=== PATIENT | male | born 1955 | race Caucasian/White ===

== ENCOUNTER 2018-12-20 14:02 | Inpatient (IN) | payer OTHER ==
--- NOTE | 2018-12-20 15:16 | ER Document Report ---
ED Medical Screen (RME) - General Chief Complaint: Pedal Edema Stated Complaint: LEFT LEG SWOLLEN Time Seen by Provider: 12/20/18 15:06 Notes: Patient is a 63-year-old male with a history of type 2 diabetes and hypertension who presents to the emergency department with a chief complaint of left lower leg wound. Patient states that he has been seeing the wound clinic up in [place] for about 1 year after developing an ulcer to his left lower extremity. Patient states they have been unable to get the wound to heal appropriately. Patient states he has been using gentamicin ointment to the ulcer. Patient reports he has had increased redness and swelling to his lower extremity and now the redness has started to streak up the left upper leg and left inner thigh x 1 week. Patient reports he is unsure if the ulcer is getting worse because he is not able to see that part of his leg. Patient reports his blood sugars have been running in the lower 200s. - Related Data Allergies/Adverse Reactions: No Known Allergies Allergy (Verified 12/20/18 14:07) Physical Exam - Vital signs Vitals: Temp Pulse Resp BP Pulse Ox 99.0 F 94 20 184/89 H 93 12/20/18 14:09 12/20/18 14:09 12/20/18 14:12/20/18 14:09 12/20/18 14:09 - Extremities Notes: Significant edema, erythema and weeping to the bilateral lower extremities -left worse than right. Patient has a ulcer noted to the anterior aspect of the left lower leg. Course - Re-evaluation Re-evalutation: 12/20/18 15:16 I have greeted and performed a rapid initial assessment of this patient. A comprehensive ED assessment and evaluation of the patient, analysis of test results and completion of the medical decision making process will be conducted by additional ED providers. - Vital Signs Vital signs: Temp Pulse Resp BP Pulse Ox 99.0 F 94 20 184/89 H 93 12/20/18 14:09 12/20/18 14:12/20/18 14:12/20/18 14:09 12/20/18 14:09
[2018-12-20 15:52] LABS: ABSOLUTE BASOPHILS # (AUTO) 0.1 10^3/uL (0.0-0.2); ABSOLUTE EOSINOPHILS # (AUTO) 0.4 10^3/uL (0.0-0.6); ABSOLUTE LYMPHOCYTES (AUTO) 1.4 10^3/uL (0.5-4.7); ABSOLUTE MONOCYTES (AUTO) 0.9 10^3/uL (0.1-1.4); ABSOLUTE NEUT (AUTO) 6.9 10^3/uL (1.7-8.2); BASOPHILS % (AUTO) 0.8 % (0-2); HEMATOCRIT 34.6 % (37.9-51.0); HEMOGLOBIN 11.7 g/dL (13.5-17.0); LYMPHOCYTES % (AUTO) 14.4 % (13-45); MEAN CORPUSCULAR HGB CONC 33.8 g/dL (32.0-36.0); MEAN CORPUSCULAR VOLUME 83 fl (80-97); MONOCYTES % (AUTO) 9.4 % (3-13); PLATELET COUNT 414 10^3/uL (150-450); RED BLOOD COUNT 4.18 10^6/uL (4.35-5.55); RED CELL DISTRIBUTION WIDTH 17.8 % (11.5-14.0); SEGMENTED NEUTROPHILS % (AUTO) 71.4 % (42-78); TOTAL CELLS COUNTED % (AUTO) 100 %; WHITE BLOOD COUNT 9.7 10^3/uL (4.0-10.5)
[2018-12-20 16:09] LABS: ALBUMIN 3.7 g/dL (3.5-5.0); ALKALINE PHOSPHATASE 303 U/L (38-126); ANION GAP 11 (5-19); ASPARTATE AMINO TRANSFERASE 22 U/L (17-59); BILIRUBIN,DIRECT 0.4 mg/dL (0.0-0.4); BILIRUBIN,TOTAL 0.6 mg/dL (0.2-1.3); BLOOD UREA NITROGEN 16 mg/dL (7-20); CALCIUM 8.9 mg/dL (8.4-10.2); CARBON DIOXIDE 31 mmol/L (22-30); CHLORIDE 94 mmol/L (98-107); GLUCOSE 257 mg/dL (75-110); POTASSIUM 4.7 mmol/L (3.6-5.0); TOTAL PROTEIN 7.3 g/dL (6.3-8.2)
--- NOTE | 2018-12-20 16:37 | RADIOLOGY REPORT (SQ) ---
EXAM DESCRIPTION: TIBIA FIBULA LEFT COMPLETED DATE/TIME: 12/20/2018 4:17 pm REASON FOR STUDY: wound left anterior leg, + swelling, + erythema COMPARISON: None. NUMBER OF VIEWS: Two views. TECHNIQUE: Two radiographic images acquired of the left tibia and fibula to include the knee and ank le in at least one projection. LIMITATIONS: None. FINDINGS: MINERALIZATION: Normal. BONES: No acute fracture or dislocation. No worrisome bone lesions. SOFT TISSUES: Diffuse soft tissue swelling. Vascular calcifications. OTHER: No other significant finding. IMPRESSION: Diffuse soft tissue swelling. No acute osseous findings. TECHNICAL DOCUMENTATION: JOB ID: [id number] [place]-72 2010 [employer]- All Rights Reserved Reading location - IP/workstation name: [email or web address]
[2018-12-20] MEDS ORDERED: PIPERACILLIN/TAZOBACTAM 3.375 GM VIAL IV ONE (18:29)
[2018-12-20] MEDS ORDERED: NORMAL SALINE 1000 ML 1,000 ML IV ONE (18:29)
[2018-12-20] MEDS ORDERED: VANCOMYCIN HCL INJ 1000 MG VIAL IV ONE (18:29)
--- NOTE | 2018-12-20 18:39 | ER Document Report ---
ED Extremity Problem, Lower - General Chief Complaint: Pedal Edema Stated Complaint: LEFT LEG SWOLLEN Time Seen by Provider: 12/20/18 15:06 Mode of Arrival: Ambulatory Information source: Patient Notes: 63-year-old male presented to ED for complaint of increasing swelling pain and drainage from his left lower leg. He has a history of diabetes type 2 and blood pressure. He states he has a distant history of arthroscopic surgeries to both knees inguinal hernia tonsils and adenoids wisdom teeth removal. He states he takes metformin and insulin for his diabetes. He states his sugars have been running in the 200s. 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 He states he has been being seen at a clinic in [place] for about a year for developing ulcer and swelling lymphedema to the left lower leg. He states his wound has been getting much worse over the last week with increasing redness swelling and drainage. He states he has developed streaking up his thigh in the last week also. He states he thinks his wound is getting worse and he is not able to see that part of his leg due to the swelling in his upper leg and behind his knee. - HPI Patient complains to provider of: Pain, Swelling, Other - Ulcer to the lower leg Location: Leg, Thigh Occurred: Other - Chronic history of mild lymphedema and a ulcer to the lower leg much worse over the last week now developed bright red with red streaking up his thighs. He states the swelling pain and drainage have been much worse progressing over the last week Quality of pain: Sharp, Throbbing Severity: Severe Pain Level: 5 Recent injury: No Associated symptoms: Painful ambulation Exacerbated by: Hanging down, Movement, Walking Relieved by: Nothing - Related Data Allergies/Adverse Reactions: No Known Allergies Allergy (Verified 12/20/18 14:07) Past Medical History - General Information source: Patient - Patient RN he is to - Social History Smoking Status: Never Smoker Frequency of alcohol use: Heavy - 2 beer a day for the pain Drug Abuse: None Occupation: RN working in the PACU Lives with: Alone Family History: Reviewed & Not Pertinent Patient has suicidal ideation: No Patient has homicidal ideation: No - Past Medical History Cardiac Medical History: Reports: Hx Hypercholesterolemia, Hx Hypertension Pulmonary Medical History: Reports: None EENT Medical History: Reports: None Neurological Medical History: Reports: None Endocrine Medical History: Reports: Hx Diabetes Mellitus Type 2 Renal/ Medical History: Reports: None Malignancy Medical History: Reports None GI Medical History: Reports: None Musculoskeletal Medical History: Reports Hx Musculoskeletal Deformity, Reports Hx Musculoskeletal Trauma Skin Medical History: Reports None Psychiatric Medical History: Reports: None Traumatic Medical History: Reports: None Infectious Medical History: Reports: None Past Surgical History: Reports: Hx Inguinal Hernia, Hx Oral Surgery, Hx Orthopedic Surgery - karla knee, Hx Tonsillectomy Review of Systems - Review of Systems Constitutional: No symptoms reported EENT: No symptoms reported Cardiovascular: No symptoms reported Respiratory: No symptoms reported Gastrointestinal: No symptoms reported Genitourinary: No symptoms reported Male Genitourinary: No symptoms reported Musculoskeletal: No symptoms reported, Muscle pain Skin: Change in color - Left lower leg very erythematous swollen weeping with left thigh having erythematous streaking large draining ulcer to the left lateral lower leg draining purulent drainage, Lesions Hematologic/Lymphatic: No symptoms reported Neurological/Psychological: No symptoms reported -: Yes All other systems reviewed and negative Physical Exam - Vital signs Vitals: Temp Pulse Resp BP Pulse Ox 99.0 F 94 20 184/89 H 93 12/20/18 14:12/20/18 14:12/20/18 14:12/20/18 14:12/20/18 14:09 Interpretation: Normal - General General appearance: Appears well, Alert - HEENT Head: Normocephalic, Atraumatic Eyes: Normal Pupils: PERRL - Respiratory Respiratory status: No respiratory distress Chest status: Nontender Breath sounds: Normal Chest palpation: Normal - Cardiovascular Rhythm: Regular Heart sounds: Normal auscultation Murmur: No - Abdominal Inspection: Normal Distension: No distension Bowel sounds: Normal Tenderness: Nontender Organomegaly: No organomegaly - Back Back: Normal, Nontender - Extremities General upper extremity: Normal inspection, Nontender, Normal color, Normal ROM, Normal temperature General lower extremity: Normal ROM, Normal temperature. No: Lakeshia's sign Thigh: Other - Very large edematous left thigh with red streaking from the lower leg. Patient also has lymphedema to the right leg but not as bad as the left leg. Pedal pulses marked on both feet Calf: Tender, Other - Left lower leg very erythematous swollen weeping with left thigh having erythematous streaking large draining ulcer to the left lateral lower leg draining purulent drainage - Neurological Neuro grossly intact: Yes Cognition: Normal Orientation: AAOx4 [place] Coma Scale Eye Opening: Spontaneous [place] Coma Scale Verbal: Oriented [place] Coma Scale Motor: Obeys Commands [place] Coma Scale Total: 15 Speech: Normal Motor strength normal: LUE, RUE, LLE, RLE Sensory: Normal - Psychological Associated symptoms: Normal affect, Normal mood - Skin Skin Temperature: Warm Skin Moisture: Dry Skin Color: Normal Location of irregularity: Extremities - Left lower leg with streaking up left thigh Character of irregularity: Erythematous - Left lower legs with red streaking up the left thigh Irregularity with: Swelling, Tenderness, Lymphangitis, Thickening, Inflammation, Weeping Course - Vital Signs Vital signs: Temp Pulse Resp BP Pulse Ox 98.1 F 80 18 183/72 H 95 12/20/18 21:52 12/20/18 21:52 12/20/18 21:52 12/20/18 21:52 12/20/18 21:52 - Laboratory Result Diagrams: 12/20/18 15:24 12/20/18 15:24 Laboratory results interpreted by me: 12/20/18 12/20/18 12/20/18 15:24 15:24 15:24 RBC 4.18 L Hgb 11.7 L Hct 34.6 L RDW 17.8 H Sodium 135.9 L Chloride 94 L Carbon Dioxide 31 H Glucose 257 H Hemoglobin A1c % 7.2 H Alkaline Phosphatase 303 H - Consults sanam Time consulted: 18:21 Reason for consultation: 12/20/18 18:45 Infected wound to the left lower leg streaking up the left thigh gross edema to the whole leg Consulted provider: will come to ER Ade Time consulted: 18:30 Reason for consultation: 12/20/18 18:47 Dr. Díaz patient stated patient will need to be admitted to hospitalist and he will consult. I consulted the hospitalist Dr. Guillen who stated she would pass it to the retail shift supervisor hospitalist for admission. Consulted provider: other - Dr. Booker and stated she would pass it onto the nighttime hospitalist for admission Discharge - Discharge Clinical Impression: Lymphangitis, acute, lower leg Ulcer of leg, chronic, left Qualifiers: Non-pressure ulcer stage: unspecified non-pressure ulcer stage Qualified Code(s): L97.929 - Non-pressure chronic ulcer of unspecified part of left lower leg with unspecified severity Cellulitis Qualifiers: Site of cellulitis: extremity Site of cellulitis of extremity: lower extremity Laterality: left Qualified Code(s): L03.116 - Cellulitis of left lower limb Obesity Qualifiers: Obesity type: unspecified obesity type Obesity classification: adult class 3 (BMI >= 40) Serious obesity comorbidity presence: with serious comorbidity Body mass index: BMI 45.0-49.9 Qualified Code(s): E66.01 - Morbid (severe) obesity due to excess calories Disposition: ADMITTED INPATIENT Admitting Provider: Roman (Hospitalist) Unit Admitted: Medical Floor
[2018-12-20] MEDS ORDERED: MORPHINE SULFATE 10 MG/ML INJ IV ONE (18:42)
[2018-12-20] MEDS ORDERED: ONDANSETRON HCL INJ/PF 4 MG/2 ML SDV IV ONE (18:42)
[2018-12-20 18:51] LABS: APPEARANCE,URINE CLEAR; BILIRUBIN,URINE NEGATIVE (NEGATIVE); COLOR,URINE YELLOW; GLUCOSE, URINE NEGATIVE (NEGATIVE); KETONES,URINE NEGATIVE (NEGATIVE); LEUKOCYTE ESTERASE,URINE NEGATIVE (NEGATIVE); NITRITE,URINE NEGATIVE (NEGATIVE); PROTEIN,URINE NEGATIVE (NEGATIVE); URINE SPECIFIC GRAVITY 1.006; UROBILINOGEN,URINE NEGATIVE mg/dL (<2.0)
[2018-12-20] MEDS ORDERED: OXYCODONE-ACETAMINOPHEN 5-325 MG TABLET PO ONE (19:04)
[2018-12-20] MEDS ORDERED: DEXTROSE 40% GEL 15 GM TUBE PO PRN ×2 (19:05)
[2018-12-20] MEDS ORDERED: MAG HYDROX/AL HYDROX/SIMETH SUSP 30 ML UDCUP PO PRN (19:05)
[2018-12-20] MEDS ORDERED: GLUCAGON,HUMAN RECOMB 1 MG INJ IM PRN (19:05)
[2018-12-20] MEDS ORDERED: IPRATROPIUM/ALBUTEROL 0.5-2.5 MG/3 ML AMPUL NEB PRN (19:05)
[2018-12-20] MEDS ORDERED: ACETAMINOPHEN 325 MG TABLET PO PRN (19:05)
[2018-12-20] MEDS ORDERED: DEXTROSE 50%-WATER 25 GM/50 ML DISP.SYRIN IV PRN ×2 (19:05)
[2018-12-20] MEDS ORDERED: VANCOMYCIN HCL 0 MG in DEXTROSE 5%-WATER 250 ML IV NR (19:15)
--- NOTE | 2018-12-20 19:31 | PDOC CONSULTATION ---
Consultation Consult Date: 12/20/18 Attending physician:: tio Provider Consulted: JOSEPH VELASCO History of Present Illness Admission Date/PCP: 12/20/18 19:20 Patient complains of: Leg swelling, drainage History of Present Illness: RAMIN VEGA is a 63 year old male Presents emergency department via ground rescue complaining of a several week history of leg swelling left greater than right, weeping, drainage, foul smell, open ulcers left lower anterior tibial region. 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 The emergency department patient was found to have cellulitis, possible lymphangitis and admission was recommended. Patient receives his medical care in [place] and is interested in leaving the emergency department and driving to [place] for continued care. Surgery was consulted for evaluation Past Medical History Past Medical History: Obesity Cardiac Medical History: Reports: Hyperlipidema, Hypertension Pulmonary Medical History: Reports: None EENT Medical History: Reports: None Neurological Medical History: Reports: None Endocrine Medical History: Reports: Diabetes Mellitus Type 2 Renal/ Medical History: Reports: None Malignancy Medical History: Reports: None GI Medical History: Reports: None Skin Medical History: Reports: None Psychiatric Medical History: Reports: None Traumatic Medical History: Reports: None Infectious Medical History: Reports: None Past Surgical History Past Surgical History: Reports: Orthopedic Surgery - karla knee, Tonsillectomy Social History Lives with: Alone Smoking Status: Never Smoker Frequency of Alcohol Use: None Hx Recreational Drug Use: No Family History Family History: None, Reviewed & Not Pertinent Parental Family History Reviewed: Yes Children Family History Reviewed: Yes Sibling(s) Family History Reviewed.: Yes Medication/Allergy Allergies/Adverse Reactions: No Known Allergies Allergy (Verified 12/20/18 14:07) Review of Systems Constitutional: ABSENT: chills, fever(s), headache(s), weight gain, weight loss Eyes: ABSENT: visual disturbances Ears: ABSENT: hearing changes Gastrointestinal: ABSENT: abdominal pain, constipation, diarrhea, hematemesis, hematochezia, nausea, vomiting Genitourinary: ABSENT: dysuria, hematuria Integumentary: PRESENT: as per HPI Neurological: PRESENT: other - Chronic dysesthesia of the lower extremities Physical Exam Vital Signs: Temp Pulse Resp BP Pulse Ox 99.0 F 94 20 184/89 H 93 12/20/18 14:12/20/18 14:09 12/20/18 14:09 12/20/18 14:09 12/20/18 14:09 Intake & Output 12/19/18 12/20/18 12/21/18 06:59 06:59 06:59 Weight 171.4 kg General appearance: PRESENT: no acute distress Head exam: PRESENT: normocephalic Eye exam: PRESENT: EOMI Mouth exam: PRESENT: dry mucosa Neck exam: PRESENT: full ROM Respiratory exam: PRESENT: clear to auscultation karla Cardiovascular exam: PRESENT: RRR Pulses: PRESENT: normal carotid pulses, normal radial pulses, normal femoral pulses GI/Abdominal exam: PRESENT: soft Rectal exam: PRESENT: deferred Extremities exam: PRESENT: other - Lower extremities examined. Patient has advanced stage IV cellulitis, chronic lymphedema, actively weeping legs marked erythematous streaking above the knee into the thigh with +4 edema of the entire leg. There are open wounds x2 left mid to lower lateral leg with fibrinous debris. Doppler. The right leg has nodular edema but no active weeping. Neurological exam: PRESENT: oriented to person, oriented to place, oriented to time, oriented to situation Psychiatric exam: PRESENT: appropriate affect Results Laboratory Results: 12/20/18 15:24 12/20/18 15:24 12/20/18 12/20/18 12/20/18 15:24 15:24 15:24 WBC 9.7 RBC 4.18 L Hgb 11.7 L Hct 34.6 L MCV 83 MCH 28.0 MCHC 33.8 RDW 17.8 H Plt Count 414 Seg Neutrophils % 71.4 Sodium 135.9 L Potassium 4.7 Chloride 94 L Carbon Dioxide 31 H Anion Gap 11 BUN 16 Creatinine 0.86 Est GFR ( Amer) > 60 Glucose 257 H Lactic Acid 2.0 Calcium 8.9 Total Bilirubin 0.6 AST 22 Alkaline Phosphatase 303 H Total Protein 7.3 Albumin 3.7 Urine Color Urine Appearance Urine pH Ur Specific [place] Urine Protein Urine Glucose (UA) Urine Ketones Urine Blood Urine Nitrite Ur Leukocyte Esterase Urine WBC (Auto) Urine RBC (Auto) 12/20/18 18:30 WBC RBC Hgb Hct MCV MCH MCHC RDW Plt Count Seg Neutrophils % Sodium Potassium Chloride Carbon Dioxide Anion Gap BUN Creatinine Est GFR ( Amer) Glucose Lactic Acid Calcium Total Bilirubin AST Alkaline Phosphatase Total Protein Albumin Urine Color YELLOW Urine Appearance CLEAR Urine pH 6.0 Ur Specific [place] 1.006 Urine Protein NEGATIVE Urine Glucose (UA) NEGATIVE Urine Ketones NEGATIVE Urine Blood NEGATIVE Urine Nitrite NEGATIVE Ur Leukocyte Esterase NEGATIVE Urine WBC (Auto) 2 Urine RBC (Auto) 1 Impressions: Tibia/Fibula X-Ray 12/20/18 15:13 IMPRESSION: Diffuse soft tissue swelling. No acute osseous findings. Assessment & Plan - Diagnosis (1) Ulcer of leg, chronic, left Is this a current diagnosis for this admission?: Yes Plan: Impression: Acute superimposed on chronic venous insufficiency of lower extremities with acute cellulitis, and element of lymphangitis above the knee with streaking in diabetic male with history of suboptimal management of his chronic condition Recommendations: 1. At bedside I debrided the ulcers on the anterior lateral aspect of the lower leg. We will initiate enzymatic debridement of the ulcer bed 2. I agree that the patient should be admitted to the hospital service for leg elevation, leg wrapping, compression garment therapy, intravenous antibiotics. 3. Unfortunately patient is convinced he will leave the hospital emergency department after his single dose of intravenous antibiotics so he can travel to [facility] to receive care where his insurance will cover him. We have advised him to stay at [facility] reduce his risk of clinical deterioration, sepsis etc. (2) Obesity Is this a current diagnosis for this admission?: Yes (3) Diabetes mellitus Is this a current diagnosis for this admission?: Yes (4) Cellulitis Is this a current diagnosis for this admission?: Yes (5) Chronic acquired lymphedema Is this a current diagnosis for this admission?: Yes (6) Lymphangitis, acute, lower leg Is this a current diagnosis for this admission?: Yes - Time Time Spent: 30 to 50 Minutes Smoking Cessation Education: 3 to 10 minutes Medications reviewed and adjusted accordingly: Yes Anticipated discharge: Home - Inpatient Certification Based on my medical assessment, after consideration of the patient's comorbidities, presenting symptoms, or acuity I expect that the services needed warrant INPATIENT care.: Yes I certify that my determination is in accordance with my understanding of Medicare's requirements for reasonable and necessary INPATIENT services [42 CFR 412.3e].: Yes Medical Necessity: Need for IV Antibiotics, Need for Surgery
--- NOTE | 2018-12-20 19:42 | EKG REPORT ---
SEVERITY:- ABNORMAL ECG - ATRIAL FIBRILLATION, V-RATE 70-90 RBBB AND LPFB : Confirmed by: Keshia Fernandez MD 20-Dec-2018 19:41:33
[2018-12-20] MEDS ORDERED: COLLAGENASE CLOSTRIDIUM HIST. OINT 30 GM ONE (19:47)
--- NOTE | 2018-12-20 19:52 | RADIOLOGY REPORT (SQ) ---
EXAM DESCRIPTION: CHEST 2 VIEWS COMPLETED DATE/TIME: 12/20/2018 7:41 pm REASON FOR STUDY: pedal edema COMPARISON: None. TECHNIQUE: Frontal and lateral radiographic views of the chest acquired. NUMBER OF VIEWS: Two view. LIMITATIONS: None. FINDINGS: LUNGS AND PLEURA: No pneumothorax. No consolidation or pleural effusion. MEDIASTINUM AND HILAR STRUCTURES: Age-appropriate contour. HEART AND VASCULAR STRUCTURES: Normal size. BONES: No acute findings. HARDWARE: None in the chest. OTHER: No other significant finding. IMPRESSION: NO ACUTE FINDINGS. TECHNICAL DOCUMENTATION: JOB ID: [id number] [place]-[id number] 2010 [employer]- All Rights Reserved Reading location - IP/workstation name: [email or web address]
[2018-12-20] MEDS ORDERED: FUROSEMIDE 40 MG TABLET PO ONE (20:00)
[2018-12-20] MEDS ORDERED: INSULIN LISPRO 100 UNIT/ML 3 ML VIAL SUBCUT ONE (20:15)
[2018-12-20] MEDS: COLLAGENASE CLOSTRIDIUM HIST. OINT 30 GM TP SCH (20:15)
[2018-12-20] MEDS ORDERED: PIPERACILLIN/TAZOBACTAM 4.5 GM VIAL IV PRN (20:19)
[2018-12-20] MEDS ORDERED: VANCOMYCIN HCL INJ 1000 MG VIAL IV PRN (20:20)
[2018-12-20] MEDS ORDERED: VANCOMYCIN HCL 1,500 MG in DEXTROSE 5%-WATER 250 ML IV ONE (20:30)
[2018-12-20] MEDS: HYDROCODONE/ACETAMINOPHEN 5-325 MG TABLET PO PRN (21:45)
[2018-12-20] MEDS ORDERED: ENALAPRIL MALEATE 10 MG TABLET PO SCH (22:00)
[2018-12-20] MEDS: HEPARIN SOD (PORCINE) 5,000 UNIT/ML 1 ML VIAL SUBCUT SCH (22:26)
[2018-12-20] MEDS ORDERED: INSULIN GLARGINE,HUM.REC.ANLOG 1,000 UNIT/10 ML VIAL (PYX) SUBCUT ONE (23:02)
[2018-12-20] MEDS: KETOROLAC TROMETHAMINE INJ/PF 30 MG/1 ML SDV IV PRN (23:10)
[2018-12-20] MEDS: INSULIN GLARGINE,HUM.REC.ANLOG 1,000 UNIT/10 ML VIAL SUBCUT SCH (23:10)
[2018-12-21] MEDS ORDERED: HYDROCODONE/ACETAMINOPHEN 5-325 MG TABLET PO ONE ×2 (00:15)
[2018-12-21] MEDS ORDERED: PIPERACILLIN/TAZOBACTAM 4.5 GM VIAL IV ONE (00:27)
[2018-12-21] MEDS: PIPERACILLIN SODIUM/TAZOBACTAM 4.5 GM in NORMAL SALINE 100 ML IV SCH ×5 (00:48→23:33)
[2018-12-21] MEDS: HYDROCODONE/ACETAMINOPHEN 5-325 MG TABLET PO PRN ×4 (03:08→23:33)
--- NOTE | 2018-12-21 05:40 | PDOC H&P ---
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 He presents with 5 days of increasing swelling pain erythema quickly spreading from below to above the knee to the upper thigh associated with subjective fever and pain. He is found to have leukocytosis, uncontrolled hypertension, leukocytosis with cellulitis of the entire left lower extremity and a 3 x 4 cm irregular ulcer with purulent base. Patient admits multiple rounds of oral and topical antibiotics most recently completing Augmentin 2 months ago and topical clindamycin approximately 2 weeks ago. He denies shortness of breath chest pain or cough. Multiple evaluations for deep vein thrombosis are negative. Past Medical History Cardiac Medical History: Reports: Hyperlipidema, Hypertension Pulmonary Medical History: Reports: None EENT Medical History: Reports: None Neurological Medical History: Reports: None Endocrine Medical History: Reports: Diabetes Mellitus Type 2 Renal/ Medical History: Reports: None Malignancy Medical History: Reports: None GI Medical History: Reports: None Skin Medical History: Reports: None Psychiatric Medical History: Reports: None Traumatic Medical History: Reports: None Infectious Medical History: Reports: None Past Surgical History Past Surgical History: Reports: Orthopedic Surgery - karla knee, Tonsillectomy Social History Information Source: Patient Lives with: Alone Smoking Status: Never Smoker Frequency of Alcohol Use: Occasional Hx Recreational Drug Use: No Drugs: None - Advance Directive Resuscitation Status: Full Code Family History Family History: DM, Other - Peripheral vascular disease Parental Family History Reviewed: Yes Children Family History Reviewed: Yes Sibling(s) Family History Reviewed.: Yes Medication/Allergy Home Medications: Amlodipine Besylate [Norvasc 10 mg Tablet] 10 mg PO DAILY 12/21/18 Candesartan Cilexetil [Atacand 32 mg Tablet] 32 mg PO DAILY 12/21/18 Enalapril Maleate [Vasotec 20 mg Tablet] 20 mg PO DAILY 12/21/18 Glimepiride [Amaryl 4 mg Tablet] 4 mg PO ACSUPPER 12/21/18 Insulin Glargine,Hum.rec.anlog [Lantus Insulin 100 Unit/1 ml 10 ml] 70 units SUBCUT QHS 12/21/18 Insulin Regular, Human [Humulin R (Pyxis) Insulin 100 Unit/ml 3Ml] 5 unit SUBCUT AC 12/21/18 Pioglitazone HCl [Actos] 30 mg PO ACSUPPER 12/21/18 Allergies/Adverse Reactions: No Known Allergies Allergy (Verified 12/20/18 14:07) Review of Systems Constitutional: ABSENT: chills, fever(s), headache(s), weight gain, weight loss Eyes: ABSENT: visual disturbances Ears: ABSENT: hearing changes Cardiovascular: ABSENT: chest pain, dyspnea on exertion, edema, orthropnea, palpitations Respiratory: ABSENT: cough, hemoptysis Gastrointestinal: ABSENT: abdominal pain, constipation, diarrhea, hematemesis, hematochezia, nausea, vomiting Genitourinary: ABSENT: dysuria, hematuria Musculoskeletal: ABSENT: joint swelling Integumentary: ABSENT: rash, wounds Neurological: ABSENT: abnormal gait, abnormal speech, confusion, dizziness, focal weakness, syncope Psychiatric: ABSENT: anxiety, depression, homidical ideation, suicidal ideation Endocrine: ABSENT: cold intolerance, heat intolerance, polydipsia, polyuria Hematologic/Lymphatic: ABSENT: easy bleeding, easy bruising Physical Exam Vital Signs: Temp Pulse Resp BP Pulse Ox 98.3 F 79 18 178/62 H 95 12/20/18 22:49 12/21/18 00:05 12/20/18 22:49 12/21/18 00:05 12/21/18 00:05 Intake & Output 12/19/18 12/20/18 12/21/18 11:59 11:59 11:59 Intake Total 1100 Output Total 175 Balance 925 Weight 171.4 kg General appearance: PRESENT: cooperative, mild distress, morbidly obese, well- developed, well-nourished Head exam: PRESENT: atraumatic, normocephalic Eye exam: PRESENT: conjunctiva pink, EOMI, PERRLA. ABSENT: scleral icterus Ear exam: PRESENT: normal external ear exam Mouth exam: PRESENT: moist, tongue midline Neck exam: ABSENT: carotid bruit, JVD, lymphadenopathy, thyromegaly Respiratory exam: PRESENT: clear to auscultation karla. ABSENT: rales, rhonchi, wheezes Cardiovascular exam: PRESENT: RRR. ABSENT: diastolic murmur, rubs, systolic murmur Pulses: PRESENT: normal dorsalis pedis pul Vascular exam: PRESENT: normal capillary refill GI/Abdominal exam: PRESENT: normal bowel sounds, soft. ABSENT: distended, guarding, mass, organolmegaly, rebound, tenderness Rectal exam: PRESENT: deferred Extremities exam: PRESENT: full ROM, pedal edema, tenderness, +2 edema, other - Severe chronic changes of lymphedema. 2 x 3 cm irregular ulcer with purulent base of the lateral leg with circumferential erythema from toes to above the knee.. ABSENT: calf tenderness, clubbing Neurological exam: PRESENT: alert, awake, oriented to person, oriented to place, oriented to time, oriented to situation, CN II-XII grossly intact. ABSENT: motor sensory deficit Psychiatric exam: PRESENT: appropriate affect, normal mood. ABSENT: homicidal ideation, suicidal ideation Skin exam: PRESENT: erythema, rash, warm, other - Severe chronic changes of lymphedema. 2 x 3 cm irregular ulcer with purulent base of the lateral leg with circumferential erythema from toes to above the knee.. ABSENT: intact Results Laboratory Results: 12/20/18 15:24 12/20/18 15:24 12/20/18 12/20/18 12/20/18 15:24 15:24 15:24 WBC 9.7 RBC 4.18 L Hgb 11.7 L Hct 34.6 L MCV 83 MCH 28.0 MCHC 33.8 RDW 17.8 H Plt Count 414 Seg Neutrophils % 71.4 Sodium 135.9 L Potassium 4.7 Chloride 94 L Carbon Dioxide 31 H Anion Gap 11 BUN 16 Creatinine 0.86 Est GFR ( Amer) > 60 Glucose 257 H Lactic Acid 2.0 Calcium 8.9 Total Bilirubin 0.6 AST 22 Alkaline Phosphatase 303 H Total Protein 7.3 Albumin 3.7 Urine Color Urine Appearance Urine pH Ur Specific [place] Urine Protein Urine Glucose (UA) Urine Ketones Urine Blood Urine Nitrite Ur Leukocyte Esterase Urine WBC (Auto) Urine RBC (Auto) 12/20/18 18:30 WBC RBC Hgb Hct MCV MCH MCHC RDW Plt Count Seg Neutrophils % Sodium Potassium Chloride Carbon Dioxide Anion Gap BUN Creatinine Est GFR ( Amer) Glucose Lactic Acid Calcium Total Bilirubin AST Alkaline Phosphatase Total Protein Albumin Urine Color YELLOW Urine Appearance CLEAR Urine pH 6.0 Ur Specific [place] 1.006 Urine Protein NEGATIVE Urine Glucose (UA) NEGATIVE Urine Ketones NEGATIVE Urine Blood NEGATIVE Urine Nitrite NEGATIVE Ur Leukocyte Esterase NEGATIVE Urine WBC (Auto) 2 Urine RBC (Auto) 1 Impressions: Tibia/Fibula X-Ray 12/20/18 15:13 IMPRESSION: Diffuse soft tissue swelling. No acute osseous findings. Chest X-Ray 12/20/18 18:31 IMPRESSION: NO ACUTE FINDINGS. Assessment and Plan - Diagnosis (1) Cellulitis Qualifiers: Site of cellulitis: extremity Site of cellulitis of extremity: lower extremity Laterality: left Qualified Code(s): L03.116 - Cellulitis of left lower limb Is this a current diagnosis for this admission?: Yes Plan: Complicated by morbid obesity, lymphedema, diabetes with leg ulcer. Empiric a ntibiotics, follow-up surgical consult, blood culture and CBC (2) Morbid obesity Is this a current diagnosis for this admission?: Yes Plan: Morbid obesity will evaluate for metabolic cause with evaluation of thyroid function and dietitian consultation (3) Obstructive sleep apnea Is this a current diagnosis for this admission?: Yes Plan: BiPAP ordered (4) Chronic acquired lymphedema Is this a current diagnosis for this admission?: Yes Plan: Compression and elevation as tolerated (5) Diabetes mellitus Is this a current diagnosis for this admission?: Yes Plan: Outpatient regiment ordered with Humalog sliding scale scheduled and as needed - Time Time Spent with patient: 25-34 minutes - Inpatient Certification Medical Necessity: Need Close Monitoring Due to Risk of Patient Decompensation
[2018-12-21 05:48] LABS: ABSOLUTE BASOPHILS # (AUTO) 0.1 10^3/uL (0.0-0.2); ABSOLUTE EOSINOPHILS # (AUTO) 0.4 10^3/uL (0.0-0.6); ABSOLUTE LYMPHOCYTES (AUTO) 1.4 10^3/uL (0.5-4.7); ABSOLUTE MONOCYTES (AUTO) 0.8 10^3/uL (0.1-1.4); ABSOLUTE NEUT (AUTO) 5.1 10^3/uL (1.7-8.2); BASOPHILS % (AUTO) 1.1 % (0-2); EOSINOPHILS % (AUTO) 5.7 % (0-6); HEMATOCRIT 31.9 % (37.9-51.0); HEMOGLOBIN 10.5 g/dL (13.5-17.0); LYMPHOCYTES % (AUTO) 17.4 % (13-45); MEAN CORPUSCULAR HEMOGLOBIN 27.5 pg (27.0-33.4); MEAN CORPUSCULAR HGB CONC 32.9 g/dL (32.0-36.0); MEAN CORPUSCULAR VOLUME 84 fl (80-97); MONOCYTES % (AUTO) 10.4 % (3-13); PLATELET COUNT 366 10^3/uL (150-450); RED BLOOD COUNT 3.82 10^6/uL (4.35-5.55); RED CELL DISTRIBUTION WIDTH 17.5 % (11.5-14.0); SEGMENTED NEUTROPHILS % (AUTO) 65.4 % (42-78); TOTAL CELLS COUNTED % (AUTO) 100 %; WHITE BLOOD COUNT 7.9 10^3/uL (4.0-10.5)
[2018-12-21 06:08] LABS: ANION GAP 9 (5-19); BLOOD UREA NITROGEN 14 mg/dL (7-20); CALCIUM 8.5 mg/dL (8.4-10.2); CARBON DIOXIDE 31 mmol/L (22-30); CHLORIDE 98 mmol/L (98-107); GLUCOSE 128 mg/dL (75-110); POTASSIUM 4.1 mmol/L (3.6-5.0)
[2018-12-21] MEDS: HEPARIN SOD (PORCINE) 5,000 UNIT/ML 1 ML VIAL SUBCUT SCH ×3 (06:12→21:58)
[2018-12-21] MEDS: KETOROLAC TROMETHAMINE INJ/PF 30 MG/1 ML SDV IV PRN ×3 (06:12→23:36)
[2018-12-21] MEDS: INSULIN LISPRO 100 UNIT/ML 3 ML VIAL SUBCUT SCH ×6 (07:48→16:47)
[2018-12-21] MEDS ORDERED: ENALAPRIL MALEATE 10 MG TABLET PO ONE (08:45)
[2018-12-21] MEDS: COLLAGENASE CLOSTRIDIUM HIST. OINT 30 GM TP SCH ×2 (09:00→17:24)
[2018-12-21] MEDS: DOCUSATE SODIUM 100 MG CAPSULE PO SCH ×2 (09:00→17:23)
[2018-12-21] MEDS ORDERED: AMLODIPINE BESYLATE 10 MG TABLET PO SCH (09:00)
[2018-12-21] MEDS: VANCOMYCIN HCL 1,250 MG in DEXTROSE 5%-WATER 250 ML IV SCH ×2 (11:49→17:18)
[2018-12-21] MEDS: GABAPENTIN 300 MG CAPSULE PO SCH ×2 (11:59→21:58)
[2018-12-21] MEDS: PANTOPRAZOLE SODIUM 40 MG TABLET.DR PO SCH (11:59)
[2018-12-21] MEDS: DULOXETINE HCL 20 MG CAPSULE.DR PO SCH (12:00)
--- NOTE | 2018-12-21 12:02 | PDOC PROGRESS REPORT ---
Subjective Progress Note for:: 12/21/18 Subjective:: Patient decided to stay in the hospital. Is receiving intravenous antibiotics, leg elevation and wrapping Reason For Visit: LEFT LEG CELLULITIS Physical Exam Vital Signs: Temp Pulse Resp BP Pulse Ox 98.2 F 68 20 153/88 H 94 12/21/18 10:46 12/21/18 10:46 12/21/18 10:46 12/21/18 10:46 12/21/18 10:46 Intake & Output 12/20/18 12/21/18 12/22/18 06:59 06:59 06:59 Intake Total 1890 100 Output Total 625 Balance 1265 100 Weight 170.1 kg General appearance: PRESENT: no acute distress Extremities exam: PRESENT: other - Both extremities examined. Right lower extremity with chronic +3 edema and pitting of the skin but no open ulcerated or weeping areas Left lower extremity examined this morning, with wrapping off; ulcerated areas clean; erythematous streaking of the thigh subsiding but not resolved Results Laboratory Results: 12/21/18 05:05 12/21/18 05:05 12/20/18 12/20/18 12/20/18 15:24 15:24 15:24 WBC 9.7 RBC 4.18 L Hgb 11.7 L Hct 34.6 L MCV 83 MCH 28.0 MCHC 33.8 RDW 17.8 H Plt Count 414 Seg Neutrophils % 71.4 Sodium 135.9 L Potassium 4.7 Chloride 94 L Carbon Dioxide 31 H Anion Gap 11 BUN 16 Creatinine 0.86 Est GFR ( Amer) > 60 Glucose 257 H Lactic Acid 2.0 Calcium 8.9 Total Bilirubin 0.6 AST 22 Alkaline Phosphatase 303 H Total Protein 7.3 Albumin 3.7 Urine Color Urine Appearance Urine pH Ur Specific [place] Urine Protein Urine Glucose (UA) Urine Ketones Urine Blood Urine Nitrite Ur Leukocyte Esterase Urine WBC (Auto) Urine RBC (Auto) 12/20/18 12/21/18 12/21/18 18:30 05:05 05:05 WBC 7.9 RBC 3.82 L Hgb 10.5 L Hct 31.9 L MCV 84 MCH 27.5 MCHC 32.9 RDW 17.5 H Plt Count 366 Seg Neutrophils % 65.4 Sodium 137.5 Potassium 4.1 Chloride 98 Carbon Dioxide 31 H Anion Gap 9 BUN 14 Creatinine 0.88 Est GFR ( Amer) > 60 Glucose 128 H Lactic Acid Calcium 8.5 Total Bilirubin AST Alkaline Phosphatase Total Protein Albumin Urine Color YELLOW Urine Appearance CLEAR Urine pH 6.0 Ur Specific [place] 1.006 Urine Protein NEGATIVE Urine Glucose (UA) NEGATIVE Urine Ketones NEGATIVE Urine Blood NEGATIVE Urine Nitrite NEGATIVE Ur Leukocyte Esterase NEGATIVE Urine WBC (Auto) 2 Urine RBC (Auto) 1 Impressions: Tibia/Fibula X-Ray 12/20/18 15:13 IMPRESSION: Diffuse soft tissue swelling. No acute osseous findings. Chest X-Ray 12/20/18 18:31 IMPRESSION: NO ACUTE FINDINGS. Assessment & Plan - Diagnosis (1) Ulcer of leg, chronic, left Qualifiers: Non-pressure ulcer stage: unspecified non-pressure ulcer stage Qualified Code(s): L97.929 - Non-pressure chronic ulcer of unspecified part of left lower leg with unspecified severity Is this a current diagnosis for this admission?: Yes Plan: Impression: Clinically improved cellulitis, and parents of ulcer left lower extremity with leg elevation, intravenous antibiotics, and local wound care Recommendations: 1. Continue current therapy; no indication for surgical intervention 2. Principal challenges with this patient will be compliance recommended therapy including local wound care, leg elevation, compression therapy, consideration for lower body pneumatic device and follow-up with the advanced wound center. 3. Surgery will sign off; reconsult if clinically indicated (2) Obesity Qualifiers: Obesity type: unspecified obesity type Obesity classification: adult class 3 (BMI >= 40) Serious obesity comorbidity presence: with serious comorbidity Body mass index: BMI 45.0-49.9 Qualified Code(s): E66.01 - Morbid (severe) obesity due to excess calories; Z68.42 - Body mass index (BMI) 45.0-49.9, adult Is this a current diagnosis for this admission?: Yes (3) Diabetes mellitus Is this a current diagnosis for this admission?: Yes (4) Cellulitis Qualifiers: Site of cellulitis: extremity Site of cellulitis of extremity: lower extremity Laterality: left Qualified Code(s): L03.116 - Cellulitis of left lower limb Is this a current diagnosis for this admission?: Yes (5) Chronic acquired lymphedema Is this a current diagnosis for this admission?: Yes (6) Lymphangitis, acute, lower leg Is this a current diagnosis for this admission?: Yes
--- NOTE | 2018-12-21 12:09 | PDOC PROGRESS REPORT ---
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 He was admitted for left lower extremity cellulitis and started on IV antibiotics. He was also evaluated by surgery in the ER. No acute event overnight. This morning, patient stil reports has pain and tenderness in the left lower extremity albeit slightly improved from yesterday. Denies any other complaints. Denies chest pain or shortness of breath. No fever chills. Reason For Visit: LEFT LEG CELLULITIS Physical Exam Vital Signs: Temp Pulse Resp BP Pulse Ox 98.2 F 68 20 153/88 H 94 12/21/18 10:46 12/21/18 10:46 12/21/18 10:46 12/21/18 10:46 12/21/18 10:46 Intake & Output 12/20/18 12/21/18 12/22/18 06:59 06:59 06:59 Intake Total 1890 100 Output Total 625 Balance 1265 100 Weight 375 lb 0.101 oz General appearance: PRESENT: no acute distress, morbidly obese Head exam: PRESENT: atraumatic, normocephalic Eye exam: PRESENT: conjunctiva pink, EOMI, PERRLA. ABSENT: scleral icterus Ear exam: PRESENT: normal external ear exam Mouth exam: PRESENT: moist, tongue midline Neck exam: ABSENT: carotid bruit, JVD, lymphadenopathy, thyromegaly Respiratory exam: PRESENT: clear to auscultation karla. ABSENT: rales, rhonchi, wheezes Cardiovascular exam: PRESENT: RRR. ABSENT: diastolic murmur, rubs, systolic m urmur Pulses: PRESENT: normal dorsalis pedis pul GI/Abdominal exam: PRESENT: normal bowel sounds, soft. ABSENT: distended, guarding, mass, organolmegaly, rebound, tenderness Rectal exam: PRESENT: deferred Extremities exam: PRESENT: other - erythema and tenderness over left lower extremity, chronic ulcer on the left leg Neurological exam: PRESENT: alert, awake, oriented to person, oriented to place, oriented to time, oriented to situation, CN II-XII grossly intact. ABSENT: motor sensory deficit Results Laboratory Results: 12/21/18 05:05 12/21/18 05:05 12/20/18 12/20/18 12/20/18 15:24 15:24 15:24 WBC 9.7 RBC 4.18 L Hgb 11.7 L Hct 34.6 L MCV 83 MCH 28.0 MCHC 33.8 RDW 17.8 H Plt Count 414 Seg Neutrophils % 71.4 Sodium 135.9 L Potassium 4.7 Chloride 94 L Carbon Dioxide 31 H Anion Gap 11 BUN 16 Creatinine 0.86 Est GFR ( Amer) > 60 Glucose 257 H Lactic Acid 2.0 Calcium 8.9 Total Bilirubin 0.6 AST 22 Alkaline Phosphatase 303 H Total Protein 7.3 Albumin 3.7 Urine Color Urine Appearance Urine pH Ur Specific Man Urine Protein Urine Glucose (UA) Urine Ketones Urine Blood Urine Nitrite Ur Leukocyte Esterase Urine WBC (Auto) Urine RBC (Auto) 12/20/18 12/21/18 12/21/18 18:30 05:05 05:05 WBC 7.9 RBC 3.82 L Hgb 10.5 L Hct 31.9 L MCV 84 MCH 27.5 MCHC 32.9 RDW 17.5 H Plt Count 366 Seg Neutrophils % 65.4 Sodium 137.5 Potassium 4.1 Chloride 98 Carbon Dioxide 31 H Anion Gap 9 BUN 14 Creatinine 0.88 Est GFR ( Amer) > 60 Glucose 128 H Lactic Acid Calcium 8.5 Total Bilirubin AST Alkaline Phosphatase Total Protein Albumin Urine Color YELLOW Urine Appearance CLEAR Urine pH 6.0 Ur Specific Man 1.006 Urine Protein NEGATIVE Urine Glucose (UA) NEGATIVE Urine Ketones NEGATIVE Urine Blood NEGATIVE Urine Nitrite NEGATIVE Ur Leukocyte Esterase NEGATIVE Urine WBC (Auto) 2 Urine RBC (Auto) 1 Impressions: Tibia/Fibula X-Ray 12/20/18 15:13 IMPRESSION: Diffuse soft tissue swelling. No acute osseous findings. Chest X-Ray 12/20/18 18:31 IMPRESSION: NO ACUTE FINDINGS. Assessment and Plan - Diagnosis (1) Cellulitis Qualifiers: Site of cellulitis: extremity Site of cellulitis of extremity: lower extremity Laterality: left Qualified Code(s): L03.116 - Cellulitis of left lower limb Is this a current diagnosis for this admission?: Yes Plan: Continue IV antibiotics. Appreciate surgery recommendations. Will demarcated lesions to monitor progression or improvement. Wound culture also obtained from chronic left leg ulcer. (2) HTN (hypertension) Is this a current diagnosis for this admission?: Yes Plan: Continue enalapril. Discontinue amlodipine to risk of pedal edema. Will add metoprolol instead. We will also add low-dose oral Lasix. (3) Diabetes mellitus Is this a current diagnosis for this admission?: Yes Plan: Continue sliding scale. (4) Morbid obesity Is this a current diagnosis for this admission?: Yes Plan: Advised on dietary and lifestyle recommendations and weight loss. (5) Ulcer of leg, chronic, left Qualifiers: Non-pressure ulcer stage: unspecified non-pressure ulcer stage Qualified Code(s): L97.929 - Non-pressure chronic ulcer of unspecified part of left lower leg with unspecified severity Is this a current diagnosis for this admission?: Yes Plan: As per #1. - Time Time Spent with patient: 25-34 minutes
[2018-12-21] MEDS: MORPHINE SULFATE 10 MG/ML INJ IV PRN ×2 (15:26→19:49)
[2018-12-21] MEDS: FUROSEMIDE 20 MG TABLET PO SCH (17:17)
[2018-12-21] MEDS: METOPROLOL TARTRATE 25 MG TABLET PO SCH (21:57)
[2018-12-21] MEDS: INSULIN GLARGINE,HUM.REC.ANLOG 1,000 UNIT/10 ML VIAL SUBCUT SCH (21:58)
[2018-12-21] MEDS: ENALAPRIL MALEATE 10 MG TABLET PO SCH (21:58)
[2018-12-22] MEDS: VANCOMYCIN HCL 1,250 MG in DEXTROSE 5%-WATER 250 ML IV SCH ×3 (02:18→17:13)
[2018-12-22] MEDS: PANTOPRAZOLE SODIUM 40 MG TABLET.DR PO SCH (05:31)
[2018-12-22] MEDS: PIPERACILLIN SODIUM/TAZOBACTAM 4.5 GM in NORMAL SALINE 100 ML IV SCH ×2 (05:32→12:03)
[2018-12-22] MEDS: MORPHINE SULFATE 10 MG/ML INJ IV PRN ×3 (05:32→23:14)
[2018-12-22] MEDS: HEPARIN SOD (PORCINE) 5,000 UNIT/ML 1 ML VIAL SUBCUT SCH ×3 (05:32→22:20)
[2018-12-22] MEDS: INSULIN LISPRO 100 UNIT/ML 3 ML VIAL SUBCUT SCH ×6 (07:15→16:38)
[2018-12-22] MEDS: KETOROLAC TROMETHAMINE INJ/PF 30 MG/1 ML SDV IV PRN ×3 (07:44→22:38)
[2018-12-22] MEDS: HYDROCODONE/ACETAMINOPHEN 5-325 MG TABLET PO PRN ×3 (07:44→20:20)
[2018-12-22] MEDS ORDERED: (PENDING PHARMACY ID) (Lansoprazole 30 MG) PO SCH (08:00)
[2018-12-22] MEDS: DOCUSATE SODIUM 100 MG CAPSULE PO SCH ×2 (09:31→17:10)
[2018-12-22] MEDS: DULOXETINE HCL 20 MG CAPSULE.DR PO SCH (09:34)
[2018-12-22] MEDS: GABAPENTIN 300 MG CAPSULE PO SCH ×2 (09:34→22:21)
[2018-12-22] MEDS: FUROSEMIDE 20 MG TABLET PO SCH ×2 (09:34→17:13)
[2018-12-22] MEDS: ENALAPRIL MALEATE 10 MG TABLET PO SCH ×2 (09:34→22:21)
[2018-12-22] MEDS: METOPROLOL TARTRATE 25 MG TABLET PO SCH ×2 (09:35→22:21)
[2018-12-22] MEDS: COLLAGENASE CLOSTRIDIUM HIST. OINT 30 GM TP SCH ×2 (09:35→17:14)
--- NOTE | 2018-12-22 13:24 | PDOC PROGRESS REPORT ---
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 He was admitted for left lower extremity cellulitis and started on IV antibiotics. He was also evaluated by surgery in the ER. 12/21: This morning, patient still reports has pain and tenderness in the left lower extremity albeit slightly improved from yesterday. Denies any other complaints. Denies chest pain or shortness of breath. No fever chills. 12/22: No acute event overnight. There is noticeable improvement in the swelling and erythematous lesions on the left lower extremity which where previously demarcated yesterday. He does say he still has pain but it is slightly better today. No fever or chills. Reason For Visit: LEFT LEG CELLULITIS Physical Exam Vital Signs: Temp Pulse Resp BP Pulse Ox 98.2 F 54 L 20 155/65 H 96 12/22/18 11:29 12/22/18 11:29 12/22/18 11:29 12/22/18 11:29 12/22/18 11:29 Intake & Output 12/21/18 12/22/18 12/23/18 06:59 06:59 06:59 Intake Total 1890 2518 690 Output Total 625 1625 350 Balance 1265 893 340 Weight 375 lb 0.101 oz 362 lb 14.094 oz General appearance: PRESENT: no acute distress, well-developed, well-nourished Head exam: PRESENT: atraumatic, normocephalic Eye exam: PRESENT: conjunctiva pink, EOMI, PERRLA. ABSENT: scleral icterus Ear exam: PRESENT: normal external ear exam Mouth exam: PRESENT: moist, tongue midline Neck exam: ABSENT: carotid bruit, JVD, lymphadenopathy, thyromegaly Respiratory exam: PRESENT: clear to auscultation karla. ABSENT: rales, rhonchi, wheezes Cardiovascular exam: PRESENT: RRR. ABSENT: diastolic murmur, rubs, systolic murmur Pulses: PRESENT: normal dorsalis pedis pul GI/Abdominal exam: PRESENT: normal bowel sounds, soft. ABSENT: distended, guarding, mass, organolmegaly, rebound, tenderness Rectal exam: PRESENT: deferred Musculoskeletal exam: PRESENT: other - There is noticeable improvement in the swelling and erythematous lesions on the left lower extremity which where previously demarcated yesterday. Neurological exam: PRESENT: alert, awake, oriented to person, oriented to place, oriented to time, oriented to situation, CN II-XII grossly intact. ABSENT: motor sensory deficit Results Laboratory Results: 12/21/18 05:05 12/22/18 09:36 12/22/18 09:36 Creatinine 0.95 Est GFR ( Amer) > 60 Impressions: Tibia/Fibula X-Ray 12/20/18 15:13 IMPRESSION: Diffuse soft tissue swelling. No acute osseous findings. Chest X-Ray 12/20/18 18:31 IMPRESSION: NO ACUTE FINDINGS. Assessment and Plan - Diagnosis (1) Cellulitis Qualifiers: Site of cellulitis: extremity Site of cellulitis of extremity: lower extremity Laterality: left Qualified Code(s): L03.116 - Cellulitis of left lower limb Is this a current diagnosis for this admission?: Yes Plan: 12/21: Continue IV antibiotics. Appreciate surgery recommendations. Will demarcated lesions to monitor progression or improvement. Wound culture also obtained from chronic left leg ulcer. 12/22: Wound culture growing GPC and gram neg rods. Continue vancomycin. Switch Zosyn to Cefepime. (2) HTN (hypertension) Is this a current diagnosis for this admission?: Yes Plan: 12/21: Continue enalapril. Discontinue amlodipine to risk of pedal edema. Will add metoprolol instead. We will also add low-dose oral Lasix to relieve some of the pedal edema. 12/22: Add PO hydralazine to regimen. (3) Diabetes mellitus Is this a current diagnosis for this admission?: Yes Plan: Continue sliding scale. (4) Morbid obesity Is this a current diagnosis for this admission?: Yes Plan: Advised on dietary and lifestyle recommendations and weight loss. (5) Ulcer of leg, chronic, left Qualifiers: Non-pressure ulcer stage: unspecified non-pressure ulcer stage Qualified Code(s): L97.929 - Non-pressure chronic ulcer of unspecified part of left lower leg with unspecified severity Is this a current diagnosis for this admission?: Yes Plan: As per #1. - Time Time Spent with patient: 25-34 minutes
[2018-12-22] MEDS: HYDRALAZINE HCL 10 MG TABLET PO SCH (19:01)
[2018-12-22] MEDS: INSULIN GLARGINE,HUM.REC.ANLOG 1,000 UNIT/10 ML VIAL SUBCUT SCH (22:20)
[2018-12-22] MEDS: CEFEPIME 1 GM/D5W RTU 1 GM/50 ML RTUPB IV SCH (22:21)
[2018-12-23] MEDS: HYDROCODONE/ACETAMINOPHEN 5-325 MG TABLET PO PRN ×3 (03:23→18:36)
[2018-12-23] MEDS: HYDRALAZINE HCL 10 MG TABLET PO SCH ×3 (03:26→17:51)
[2018-12-23] MEDS: VANCOMYCIN HCL 1,250 MG in DEXTROSE 5%-WATER 250 ML IV SCH ×2 (03:27→11:41)
[2018-12-23 05:30] LABS: ANION GAP 7 (5-19); BLOOD UREA NITROGEN 13 mg/dL (7-20); CALCIUM 8.8 mg/dL (8.4-10.2); CARBON DIOXIDE 32 mmol/L (22-30); CHLORIDE 97 mmol/L (98-107); GLUCOSE 83 mg/dL (75-110); POTASSIUM 4.3 mmol/L (3.6-5.0)
[2018-12-23] MEDS: PANTOPRAZOLE SODIUM 40 MG TABLET.DR PO SCH (05:36)
[2018-12-23] MEDS: HEPARIN SOD (PORCINE) 5,000 UNIT/ML 1 ML VIAL SUBCUT SCH ×3 (05:36→22:20)
[2018-12-23] MEDS: INSULIN LISPRO 100 UNIT/ML 3 ML VIAL SUBCUT SCH ×5 (08:49→16:06)
[2018-12-23] MEDS: DOCUSATE SODIUM 100 MG CAPSULE PO SCH ×2 (09:10→17:54)
[2018-12-23] MEDS: FUROSEMIDE 20 MG TABLET PO SCH ×2 (09:24→17:52)
[2018-12-23] MEDS: ENALAPRIL MALEATE 10 MG TABLET PO SCH ×2 (09:24→22:38)
[2018-12-23] MEDS: DULOXETINE HCL 20 MG CAPSULE.DR PO SCH (09:24)
[2018-12-23] MEDS: METOPROLOL TARTRATE 25 MG TABLET PO SCH ×2 (09:24→22:21)
[2018-12-23] MEDS: GABAPENTIN 300 MG CAPSULE PO SCH ×2 (09:24→22:21)
[2018-12-23] MEDS: CEFEPIME 1 GM/D5W RTU 1 GM/50 ML RTUPB IV SCH (09:26)
[2018-12-23] MEDS: COLLAGENASE CLOSTRIDIUM HIST. OINT 30 GM TP SCH (11:42)
[2018-12-23] MEDS: MORPHINE SULFATE 10 MG/ML INJ IV PRN ×2 (13:11→22:20)
--- NOTE | 2018-12-23 15:47 | PDOC PROGRESS REPORT ---
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 He was admitted for left lower extremity cellulitis and started on IV antibiotics. He was also evaluated by surgery in the ER. 12/21: This morning, patient still reports has pain and tenderness in the left lower extremity albeit slightly improved from yesterday. Denies any other complaints. Denies chest pain or shortness of breath. No fever chills. 12/22: No acute event overnight. There is noticeable improvement in the swelling and erythematous lesions on the left lower extremity which where previously demarcated yesterday. He does say he still has pain but it is slightly better today. No fever or chills. 12/23: Patient appears comfortable. He is afebrile his white count is normal. Cellulitis is improving. Wound cultures positive for Enterococcus faecalis and Klebsiella Aerogenes. Reason For Visit: LEFT LEG CELLULITIS Physical Exam Vital Signs: Temp Pulse Resp BP Pulse Ox 98.0 F 68 24 H 165/73 H 89 L 12/23/18 11:36 12/23/18 11:36 12/23/18 11:36 12/23/18 11:36 12/23/18 11:36 Intake & Output 12/22/18 12/23/18 12/24/18 06:59 06:59 06:59 Intake Total 2518 2320 480 Output Total 1625 1625 725 Balance 893 695 -245 Weight 362 lb 14.094 oz 380 lb 15.34 oz Exam: Patient is no acute distress obese Alert oriented to time place person No anxiety or depression Head: atraumatic normocephalic Pupils: are equal reactive Neck: is supple and trachea is central no lymphadenopathy No pharyngeal erythema or exudates Heart: Regular rate and rhythm Lungs: clear no distress Abdomen: nontender nondistended Neurological exam: unremarkable Musculoskeletal: No joint swelling or effusion chronic lower back pain and tenderness No suicidal or homicidal ideation Left lower extremity is wrapped and compression dressing the area above the knee is not warm and does not appear cellulitic I could see the marking of the cellulitis and it seems that cellulitis has improved significantly Results Laboratory Results: 12/21/18 05:05 12/23/18 04:06 12/23/18 04:06 Sodium 135.7 L Potassium 4.3 Chloride 97 L Carbon Dioxide 32 H Anion Gap 7 BUN 13 Creatinine 1.11 Est GFR ( Amer) > 60 Glucose 83 Calcium 8.8 Impressions: Tibia/Fibula X-Ray 12/20/18 15:13 IMPRESSION: Diffuse soft tissue swelling. No acute osseous findings. Chest X-Ray 12/20/18 18:31 IMPRESSION: NO ACUTE FINDINGS. Assessment and Plan - Diagnosis (1) Cellulitis Qualifiers: Site of cellulitis: extremity Site of cellulitis of extremity: lower ext remity Laterality: left Qualified Code(s): L03.116 - Cellulitis of left lower limb Is this a current diagnosis for this admission?: Yes Plan: 12/21: Continue IV antibiotics. Appreciate surgery recommendations. Will demarcated lesions to monitor progression or improvement. Wound culture also obtained from chronic left leg ulcer. 12/22: Wound culture growing GPC and gram neg rods. Continue vancomycin. Switch Zosyn to Cefepime. 12/23: Wound cultures positive for Enterococcus faecalis and Klebsiella Aerogenes. Switch antibiotics to IV penicillin and ceftriaxone. Consult ID. (2) Diabetes mellitus Is this a current diagnosis for this admission?: Yes Plan: Resume his home medications. Monitor glucose levels. His A1c is 7.2. (3) HTN (hypertension) Is this a current diagnosis for this admission?: Yes Plan: Not optimally controlled. Restart his home medications. (4) Morbid obesity Is this a current diagnosis for this admission?: Yes Plan: Advised on dietary and lifestyle recommendations and weight loss. (5) Ulcer of leg, chronic, left Qualifiers: Non-pressure ulcer stage: unspecified non-pressure ulcer stage Qualified Code(s): L97.929 - Non-pressure chronic ulcer of unspecified part of left lower leg with unspecified severity Is this a current diagnosis for this admission?: Yes Plan: Continue wound care
[2018-12-23] MEDS: INSULIN REG, HUMAN 100 UNIT/ML 3 ML VIAL (PYX) SUBCUT SCH (16:07)
[2018-12-23] MEDS: GLIMEPIRIDE 4 MG TABLET PO SCH (16:14)
[2018-12-23] MEDS: PIOGLITAZONE HCL 30 MG TABLET PO SCH (16:14)
[2018-12-23] MEDS: CEFTRIAXONE 1 GM/D5W RTU 1 GM/50 ML RTUPB IV SCH (16:32)
[2018-12-23] MEDS ORDERED: PENICILLIN G-K 5 MILLION UNIT VIAL IV SCH (18:00)
[2018-12-23] MEDS: PENICILLIN POTASSIUM IV SCH ×2 (18:11→22:20)
[2018-12-23] MEDS: DEXTROSE 5% IV SCH ×2 (18:11→22:20)
[2018-12-23] MEDS: WATER IV SCH ×2 (18:11→22:20)
[2018-12-23] MEDS ORDERED: (PENDING PHARMACY ID) (Enalapril Maleate [Vasotec 20 Mg Tablet] 20 MG) PO SCH (22:00)
[2018-12-23] MEDS: INSULIN GLARGINE,HUM.REC.ANLOG 1,000 UNIT/10 ML VIAL SUBCUT SCH (22:21)
[2018-12-23] MEDS: COLLAGENASE CLOSTRIDIUM HIST. OINT 30 GM TOP SCH (22:29)
[2018-12-23] MEDS: KETOROLAC TROMETHAMINE INJ/PF 30 MG/1 ML SDV IV PRN (22:30)
[2018-12-24] MEDS: HYDROCODONE/ACETAMINOPHEN 5-325 MG TABLET PO PRN ×3 (00:54→18:00)
[2018-12-24] MEDS: DEXTROSE 5% IV SCH ×6 (01:02→22:14)
[2018-12-24] MEDS: HYDRALAZINE HCL 10 MG TABLET PO SCH ×2 (01:02→09:27)
[2018-12-24] MEDS: PENICILLIN POTASSIUM IV SCH ×6 (01:02→22:14)
[2018-12-24] MEDS: WATER IV SCH ×6 (01:02→22:14)
[2018-12-24] MEDS: HEPARIN SOD (PORCINE) 5,000 UNIT/ML 1 ML VIAL SUBCUT SCH ×3 (06:50→22:12)
[2018-12-24] MEDS: MORPHINE SULFATE 10 MG/ML INJ IV PRN ×3 (06:51→19:56)
[2018-12-24] MEDS: KETOROLAC TROMETHAMINE INJ/PF 30 MG/1 ML SDV IV PRN ×2 (06:51→19:56)
[2018-12-24] MEDS: PANTOPRAZOLE SODIUM 40 MG TABLET.DR PO SCH (06:51)
[2018-12-24 07:23] LABS: HEMATOCRIT 32.2 % (37.9-51.0); HEMOGLOBIN 10.7 g/dL (13.5-17.0); MEAN CORPUSCULAR HEMOGLOBIN 27.3 pg (27.0-33.4); MEAN CORPUSCULAR HGB CONC 33.1 g/dL (32.0-36.0); MEAN CORPUSCULAR VOLUME 82 fl (80-97); PLATELET COUNT 343 10^3/uL (150-450); RED BLOOD COUNT 3.92 10^6/uL (4.35-5.55); RED CELL DISTRIBUTION WIDTH 17.8 % (11.5-14.0); WHITE BLOOD COUNT 9.1 10^3/uL (4.0-10.5)
[2018-12-24 07:57] LABS: ANION GAP 9 (5-19); BLOOD UREA NITROGEN 12 mg/dL (7-20); CALCIUM 9.1 mg/dL (8.4-10.2); CARBON DIOXIDE 32 mmol/L (22-30); CHLORIDE 98 mmol/L (98-107); POTASSIUM 3.8 mmol/L (3.6-5.0)
[2018-12-24 08:03] LABS: GLUCOSE 69 mg/dL (75-110)
[2018-12-24] MEDS: INSULIN LISPRO 100 UNIT/ML 3 ML VIAL SUBCUT SCH ×3 (08:19→16:13)
[2018-12-24] MEDS: INSULIN REG, HUMAN 100 UNIT/ML 3 ML VIAL (PYX) SUBCUT SCH ×3 (08:20→16:14)
[2018-12-24] MEDS: DULOXETINE HCL 20 MG CAPSULE.DR PO SCH (09:27)
[2018-12-24] MEDS: GABAPENTIN 300 MG CAPSULE PO SCH ×2 (09:28→22:13)
[2018-12-24] MEDS: METOPROLOL TARTRATE 25 MG TABLET PO SCH ×2 (09:28→22:13)
[2018-12-24] MEDS: ENALAPRIL MALEATE 10 MG TABLET PO SCH ×2 (09:28→22:13)
[2018-12-24] MEDS: FUROSEMIDE 20 MG TABLET PO SCH ×2 (09:29→18:00)
[2018-12-24] MEDS: CEFTRIAXONE 1 GM/D5W RTU 1 GM/50 ML RTUPB IV SCH (09:31)
[2018-12-24] MEDS: DOCUSATE SODIUM 100 MG CAPSULE PO SCH ×2 (09:47→18:01)
[2018-12-24] MEDS ORDERED: AMLODIPINE BESYLATE 10 MG TABLET PO SCH (10:00)
[2018-12-24] MEDS ORDERED: (PENDING PHARMACY ID) (Candesartan Cilexetil [Atacand 32 Mg Tablet] 32 MG) PO SCH (10:00)
[2018-12-24 10:40] LABS: VANCOMYCIN,TROUGH 11.6 ug/mL (5.0-20.0)
[2018-12-24] MEDS: COLLAGENASE CLOSTRIDIUM HIST. OINT 30 GM TOP SCH ×2 (11:27→22:14)
--- NOTE | 2018-12-24 13:18 | PDOC PROGRESS REPORT ---
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 He was admitted for left lower extremity cellulitis and started on IV antibiotics. He was also evaluated by surgery in the ER. 12/21: This morning, patient still reports has pain and tenderness in the left lower extremity albeit slightly improved from yesterday. Denies any other complaints. Denies chest pain or shortness of breath. No fever chills. 12/22: No acute event overnight. There is noticeable improvement in the swelling and erythematous lesions on the left lower extremity which where previously demarcated yesterday. He does say he still has pain but it is slightly better today. No fever or chills. 12/23: Patient appears comfortable. He is afebrile his white count is normal. Cellulitis is improving. Wound cultures positive for Enterococcus faecalis and Klebsiella Aerogenes. 12/24: patient is doing well. Afebrile. Normal white count. Tolerating antibiotics. Reason For Visit: LEFT LEG CELLULITIS Physical Exam Vital Signs: Temp Pulse Resp BP Pulse Ox 98.0 F 70 21 H 160/76 H 96 12/24/18 08:59 12/24/18 09:28 12/24/18 08:59 12/24/18 09:28 12/24/18 08:59 Intake & Output 12/23/18 12/24/18 12/25/18 06:59 06:59 06:59 Intake Total 2320 2210 Output Total 1625 1925 Balance 695 285 Weight 380 lb 15.34 oz 375 lb 3.628 oz Exam: Patient is no acute distress obese Alert oriented to time place person No anxiety or depression Head: atraumatic normocephalic Pupils: are equal reactive Neck: is supple and trachea is central no lymphadenopathy No pharyngeal erythema or exudates Heart: Regular rate and rhythm Lungs: clear no distress Abdomen: nontender nondistended Neurological exam: unremarkable Musculoskeletal: No joint swelling or effusion chronic lower back pain and tenderness No suicidal or homicidal ideation Left lower extremity is chronically edematous. Cellulitis appears to be improving. Chronic ulcer on the lateral aspect of the leg. Results Laboratory Results: 12/24/18 06:47 12/24/18 06:47 12/24/18 12/24/18 06:47 06:47 WBC 9.1 RBC 3.92 L Hgb 10.7 L Hct 32.2 L MCV 82 MCH 27.3 MCHC 33.1 RDW 17.8 H Plt Count 343 Sodium 138.7 Potassium 3.8 Chloride 98 Carbon Dioxide 32 H Anion Gap 9 BUN 12 Creatinine 1.06 Est GFR ( Amer) > 60 Glucose 69 L Calcium 9.1 12/21/18 10:56 Leg - Left Gram Stain - Final Impressions: Tibia/Fibula X-Ray 12/20/18 15:13 IMPRESSION: Diffuse soft tissue swelling. No acute osseous findings. Chest X-Ray 12/20/18 18:31 IMPRESSION: NO ACUTE FINDINGS. Assessment and Plan - Diagnosis (1) Cellulitis Qualifiers: Site of cellulitis: extremity Site of cellulitis of extremity: lower extremity Laterality: left Qualified Code(s): L03.116 - Cellulitis of left lower limb Is this a current diagnosis for this admission?: Yes Plan: 12/21: Continue IV antibiotics. Appreciate surgery recommendations. Will demarcated lesions to monitor progression or improvement. Wound culture also obtained from chronic left leg ulcer. 12/22: Wound culture growing GPC and gram neg rods. Continue vancomycin. Switch Zosyn to Cefepime. 12/23: Wound cultures positive for Enterococcus faecalis and Klebsiella Aerogenes. Switch antibiotics to IV penicillin and ceftriaxone. Consult ID. 12/24: Wound inspected. Appears improving. Continue penicillin and ceftriaxone. Follow-up recommendations from ID. (2) Diabetes mellitus Is this a current diagnosis for this admission?: Yes Plan: Continue current medications. Monitor glucose levels. His A1c is 7.2. (3) HTN (hypertension) Is this a current diagnosis for this admission?: Yes Plan: Not optimally controlled. Medications adjusted. Monitor blood pressure. (4) Morbid obesity Is this a current diagnosis for this admission?: Yes Plan: Advised on dietary and lifestyle recommendations and weight loss. (5) Ulcer of leg, chronic, left Qualifiers: Non-pressure ulcer stage: unspecified non-pressure ulcer stage Qualified Code(s): L97.929 - Non-pressure chronic ulcer of unspecified part of left lower leg with unspecified severity Is this a current diagnosis for this admission?: Yes Plan: Continue wound care
[2018-12-24 13:51] LABS: ANION GAP 11 (5-19); BLOOD UREA NITROGEN 13 mg/dL (7-20); CALCIUM 8.7 mg/dL (8.4-10.2); CARBON DIOXIDE 28 mmol/L (22-30); CHLORIDE 97 mmol/L (98-107); GLUCOSE 151 mg/dL (75-110); POTASSIUM 4.6 mmol/L (3.6-5.0)
[2018-12-24] MEDS: ISOSORB DINIT/HYDRALAZINE HCL 20-37.5 MG TABLET PO SCH ×2 (16:20→22:13)
[2018-12-24] MEDS: PIOGLITAZONE HCL 30 MG TABLET PO SCH (16:22)
[2018-12-24] MEDS: GLIMEPIRIDE 4 MG TABLET PO SCH (16:23)
[2018-12-24] MEDS: INSULIN GLARGINE,HUM.REC.ANLOG 1,000 UNIT/10 ML VIAL SUBCUT SCH (22:14)
[2018-12-25] MEDS: HYDROCODONE/ACETAMINOPHEN 5-325 MG TABLET PO PRN ×3 (00:01→17:49)
[2018-12-25] MEDS: PENICILLIN POTASSIUM IV SCH ×6 (03:54→22:26)
[2018-12-25] MEDS: DEXTROSE 5% IV SCH ×6 (03:54→22:26)
[2018-12-25] MEDS: WATER IV SCH ×6 (03:54→22:26)
[2018-12-25 05:30] LABS: HEMATOCRIT 30.1 % (37.9-51.0); MEAN CORPUSCULAR HEMOGLOBIN 27.6 pg (27.0-33.4); MEAN CORPUSCULAR HGB CONC 33.2 g/dL (32.0-36.0); MEAN CORPUSCULAR VOLUME 83 fl (80-97); PLATELET COUNT 354 10^3/uL (150-450); RED BLOOD COUNT 3.63 10^6/uL (4.35-5.55); RED CELL DISTRIBUTION WIDTH 17.6 % (11.5-14.0); WHITE BLOOD COUNT 9.3 10^3/uL (4.0-10.5)
[2018-12-25] MEDS: MORPHINE SULFATE 10 MG/ML INJ IV PRN ×3 (05:50→22:29)
[2018-12-25] MEDS: KETOROLAC TROMETHAMINE INJ/PF 30 MG/1 ML SDV IV PRN ×2 (05:50→16:38)
[2018-12-25] MEDS: HEPARIN SOD (PORCINE) 5,000 UNIT/ML 1 ML VIAL SUBCUT SCH ×3 (05:50→22:27)
[2018-12-25] MEDS: PANTOPRAZOLE SODIUM 40 MG TABLET.DR PO SCH (05:51)
[2018-12-25] MEDS: ISOSORB DINIT/HYDRALAZINE HCL 20-37.5 MG TABLET PO SCH ×3 (05:51→22:28)
[2018-12-25] MEDS: INSULIN REG, HUMAN 100 UNIT/ML 3 ML VIAL (PYX) SUBCUT SCH ×2 (07:57→16:53)
[2018-12-25] MEDS: INSULIN LISPRO 100 UNIT/ML 3 ML VIAL SUBCUT SCH ×3 (07:57→16:53)
[2018-12-25] MEDS: LOSARTAN POTASSIUM 50 MG TABLET PO SCH (10:44)
[2018-12-25] MEDS: CEFTRIAXONE 1 GM/D5W RTU 1 GM/50 ML RTUPB IV SCH (10:44)
[2018-12-25] MEDS: DOCUSATE SODIUM 100 MG CAPSULE PO SCH ×2 (10:44→17:47)
[2018-12-25] MEDS: FUROSEMIDE 20 MG TABLET PO SCH ×2 (10:45→17:46)
[2018-12-25] MEDS: METOPROLOL TARTRATE 25 MG TABLET PO SCH ×2 (10:45→22:28)
[2018-12-25] MEDS: GABAPENTIN 300 MG CAPSULE PO SCH ×2 (10:45→22:28)
[2018-12-25] MEDS: ENALAPRIL MALEATE 10 MG TABLET PO SCH ×2 (10:45→22:27)
[2018-12-25] MEDS: DULOXETINE HCL 20 MG CAPSULE.DR PO SCH (10:46)
[2018-12-25] MEDS: COLLAGENASE CLOSTRIDIUM HIST. OINT 30 GM TOP SCH ×2 (10:46→22:29)
--- NOTE | 2018-12-25 13:05 | PDOC PROGRESS REPORT ---
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 He was admitted for left lower extremity cellulitis and started on IV antibiotics. He was also evaluated by surgery in the ER. 12/21: This morning, patient still reports has pain and tenderness in the left lower extremity albeit slightly improved from yesterday. Denies any other complaints. Denies chest pain or shortness of breath. No fever chills. 12/22: No acute event overnight. There is noticeable improvement in the swelling and erythematous lesions on the left lower extremity which where previously demarcated yesterday. He does say he still has pain but it is slightly better today. No fever or chills. 12/23: Patient appears comfortable. He is afebrile his white count is normal. Cellulitis is improving. Wound cultures positive for Enterococcus faecalis and Klebsiella Aerogenes. 12/24: patient is doing well. Afebrile. Normal white count. Tolerating antibiotics. 12/25: No significant changes. Wound is still oozing. Tolerating antibiotics. Reason For Visit: LEFT LEG CELLULITIS Physical Exam Vital Signs: Temp Pulse Resp BP Pulse Ox 97.6 F 63 17 158/65 H 93 12/25/18 12:28 12/25/18 12:28 12/25/18 12:28 12/25/18 12:28 12/25/18 12:28 Intake & Output 12/24/18 12/25/18 12/26/18 06:59 06:59 06:59 Intake Total 2210 1925 Output Total 192 1900 Balance 285 25 Weight 375 lb 3.628 oz 376 lb 5.265 oz Exam: Patient is no acute distress obese Alert oriented to time place person No anxiety or depression Head: atraumatic normocephalic Pupils: are equal reactive Neck: is supple and trachea is central no lymphadenopathy No pharyngeal erythema or exudates Heart: Regular rate and rhythm Lungs: clear no distress Abdomen: nontender nondistended Neurological exam: unremarkable Musculoskeletal: No joint swelling or effusion chronic lower back pain and tenderness No suicidal or homicidal ideation Left lower extremity is wrapped with dressing Results Laboratory Results: 12/25/18 04:38 12/24/18 09:46 12/24/18 12/25/18 09:46 04:38 WBC 9.3 RBC 3.63 L Hgb 10.0 L Hct 30.1 L MCV 83 MCH 27.6 MCHC 33.2 RDW 17.6 H Plt Count 354 Sodium 135.5 L Potassium 4.6 Chloride 97 L Carbon Dioxide 28 Anion Gap 11 BUN 13 Creatinine 0.94 Est GFR ( Amer) > 60 Glucose 151 H Calcium 8.7 12/21/18 10:56 Leg - Left Gram Stain - Final Impressions: Tibia/Fibula X-Ray 12/20/18 15:13 IMPRESSION: Diffuse soft tissue swelling. No acute osseous findings. Chest X-Ray 12/20/18 18:31 IMPRESSION: NO ACUTE FINDINGS. Assessment and Plan - Diagnosis (1) Cellulitis Qualifiers: Site of cellulitis: extremity Site of cellulitis of extremity: lower extremity Laterality: left Qualified Code(s): L03.116 - Cellulitis of left lower limb Is this a current diagnosis for this admission?: Yes Plan: 12/21: Continue IV antibiotics. Appreciate surgery recommendations. Will demarcated lesions to monitor progression or improvement. Wound culture also obtained from chronic left leg ulcer. 12/22: Wound culture growing GPC and gram neg rods. Continue vancomycin. Switch Zosyn to Cefepime. 12/23: Wound cultures positive for Enterococcus faecalis and Klebsiella Aerogenes. Switch antibiotics to IV penicillin and ceftriaxone. Consult ID. 12/24: Wound inspected. Appears improving. Continue penicillin and ceftriaxone. Follow-up recommendations from ID. 12/25: I think the wound may need to be debrided. Surgery may need to come back and evaluate the patient again. Discussed with nursing staff. (2) Diabetes mellitus Is this a current diagnosis for this admission?: Yes Plan: Continue current medications. Monitor glucose levels. His A1c is 7.2. (3) HTN (hypertension) Is this a current diagnosis for this admission?: Yes Plan: Not optimally controlled. Medications adjusted again today. Monitor blood pressure. (4) Morbid obesity Is this a current diagnosis for this admission?: Yes Plan: Advised on dietary and lifestyle recommendations and weight loss. (5) Ulcer of leg, chronic, left Qualifiers: Non-pressure ulcer stage: unspecified non-pressure ulcer stage Qualified Code(s): L97.929 - Non-pressure chronic ulcer of unspecified part of left lower leg with unspecified severity Is this a current diagnosis for this admission?: Yes Plan: Continue wound care. May need debridement.
[2018-12-25 13:33] LABS: ANION GAP 10 (5-19); BLOOD UREA NITROGEN 12 mg/dL (7-20); CALCIUM 8.6 mg/dL (8.4-10.2); CARBON DIOXIDE 29 mmol/L (22-30); CHLORIDE 97 mmol/L (98-107); GLUCOSE 125 mg/dL (75-110); POTASSIUM 4.3 mmol/L (3.6-5.0)
--- NOTE | 2018-12-25 14:03 | PDOC PROGRESS REPORT ---
Subjective Progress Note for:: 12/25/18 Subjective:: PAINS LEFT LEG Reason For Visit: LEFT LEG CELLULITIS Physical Exam Vital Signs: Temp Pulse Resp BP Pulse Ox 97.6 F 63 17 158/65 H 93 12/25/18 12:28 12/25/18 12:28 12/25/18 12:28 12/25/18 12:28 12/25/18 12:28 Intake & Output 12/24/18 12/25/18 12/26/18 06:59 06:59 06:59 Intake Total 2210 1925 932 Output Total 5 1900 715 Balance 285 25 217 Weight 170.2 kg 170.7 kg Exam: Both lower legs with swelling and erythema. Patient c/o tightness going to left thigh. Has dry anterior ulcers lower leg left side with erythema and tenderness. Results Laboratory Results: 12/25/18 04:38 12/25/18 04:38 12/25/18 12/25/18 04:38 04:38 WBC 9.3 RBC 3.63 L Hgb 10.0 L Hct 30.1 L MCV 83 MCH 27.6 MCHC 33.2 RDW 17.6 H Plt Count 354 Sodium 135.8 L Potassium 4.3 Chloride 97 L Carbon Dioxide 29 Anion Gap 10 BUN 12 Creatinine 1.07 Est GFR ( Amer) > 60 Glucose 125 H Calcium 8.6 12/21/18 10:56 Leg - Left Gram Stain - Final Impressions: Tibia/Fibula X-Ray 12/20/18 15:13 IMPRESSION: Diffuse soft tissue swelling. No acute osseous findings. Chest X-Ray 12/20/18 18:31 IMPRESSION: NO ACUTE FINDINGS. Assessment & Plan - Diagnosis (1) Venous stasis ulcer of left lower leg with edema of left lower leg Is this a current diagnosis for this admission?: Yes (2) Venous stasis with ulcers of left leg Is this a current diagnosis for this admission?: No (3) Cellulitis Qualifiers: Site of cellulitis: extremity Site of cellulitis of extremity: lower extremity Laterality: left Qualified Code(s): L03.116 - Cellulitis of left lower limb Is this a current diagnosis for this admission?: Yes (4) Chronic acquired lymphedema Is this a current diagnosis for this admission?: Yes (5) Diabetes mellitus Is this a current diagnosis for this admission?: Yes - Time Time Spent with patient: 15-24 minutes - Inpatient Certification Medical Necessity: Need Close Monitoring Due to Risk of Patient Decompensation, Need for Pain Control, Need for IV Antibiotics - Plan Summary Plan Summary: Ordered Venous ultrasound of both lower extremities to R/O DVT Continue compression regimen and IV antibiotics Leg elevation
[2018-12-25] MEDS: PIOGLITAZONE HCL 30 MG TABLET PO SCH (16:16)
[2018-12-25] MEDS: GLIMEPIRIDE 4 MG TABLET PO SCH (16:17)
[2018-12-25] MEDS: INSULIN GLARGINE,HUM.REC.ANLOG 1,000 UNIT/10 ML VIAL SUBCUT SCH (22:27)
[2018-12-26] MEDS: HYDROCODONE/ACETAMINOPHEN 5-325 MG TABLET PO PRN ×4 (00:05→20:34)
[2018-12-26] MEDS: DEXTROSE 5% IV SCH ×4 (05:29→14:22)
[2018-12-26] MEDS: PENICILLIN POTASSIUM IV SCH ×4 (05:29→14:22)
[2018-12-26] MEDS: WATER IV SCH ×4 (05:29→14:22)
[2018-12-26] MEDS: HEPARIN SOD (PORCINE) 5,000 UNIT/ML 1 ML VIAL SUBCUT SCH ×3 (06:29→21:23)
[2018-12-26] MEDS: ISOSORB DINIT/HYDRALAZINE HCL 20-37.5 MG TABLET PO SCH ×3 (06:29→21:22)
[2018-12-26] MEDS: PANTOPRAZOLE SODIUM 40 MG TABLET.DR PO SCH (06:30)
[2018-12-26 06:54] LABS: HEMATOCRIT 30.5 % (37.9-51.0); MEAN CORPUSCULAR HEMOGLOBIN 27.4 pg (27.0-33.4); MEAN CORPUSCULAR HGB CONC 32.8 g/dL (32.0-36.0); MEAN CORPUSCULAR VOLUME 84 fl (80-97); PLATELET COUNT 413 10^3/uL (150-450); RED BLOOD COUNT 3.65 10^6/uL (4.35-5.55); RED CELL DISTRIBUTION WIDTH 17.6 % (11.5-14.0); WHITE BLOOD COUNT 10.2 10^3/uL (4.0-10.5)
[2018-12-26] MEDS: INSULIN LISPRO 100 UNIT/ML 3 ML VIAL SUBCUT SCH ×3 (07:48→16:25)
[2018-12-26] MEDS: INSULIN REG, HUMAN 100 UNIT/ML 3 ML VIAL (PYX) SUBCUT SCH ×3 (07:49→16:25)
[2018-12-26] MEDS: LOSARTAN POTASSIUM 50 MG TABLET PO SCH (09:35)
[2018-12-26] MEDS: DOCUSATE SODIUM 100 MG CAPSULE PO SCH ×2 (09:35→17:23)
[2018-12-26] MEDS: GABAPENTIN 300 MG CAPSULE PO SCH ×2 (09:35→21:22)
[2018-12-26] MEDS: FUROSEMIDE 20 MG TABLET PO SCH ×2 (09:35→17:23)
[2018-12-26] MEDS: METOPROLOL TARTRATE 25 MG TABLET PO SCH ×2 (09:35→21:22)
[2018-12-26] MEDS: ENALAPRIL MALEATE 10 MG TABLET PO SCH ×2 (09:36→21:28)
[2018-12-26] MEDS: DULOXETINE HCL 20 MG CAPSULE.DR PO SCH (09:36)
[2018-12-26] MEDS: COLLAGENASE CLOSTRIDIUM HIST. OINT 30 GM TOP SCH ×2 (09:37→21:29)
[2018-12-26] MEDS: MORPHINE SULFATE 10 MG/ML INJ IV PRN ×4 (10:12→23:26)
[2018-12-26] MEDS: CEFTRIAXONE 1 GM/D5W RTU 1 GM/50 ML RTUPB IV SCH (10:29)
--- NOTE | 2018-12-26 12:52 | PDOC PROGRESS REPORT ---
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 He was admitted for left lower extremity cellulitis and started on IV antibiotics. He was also evaluated by surgery in the ER. 12/21: This morning, patient still reports has pain and tenderness in the left lower extremity albeit slightly improved from yesterday. Denies any other complaints. Denies chest pain or shortness of breath. No fever chills. 12/22: No acute event overnight. There is noticeable improvement in the swelling and erythematous lesions on the left lower extremity which where previously demarcated yesterday. He does say he still has pain but it is slightly better today. No fever or chills. 12/23: Patient appears comfortable. He is afebrile his white count is normal. Cellulitis is improving. Wound cultures positive for Enterococcus faecalis and Klebsiella Aerogenes. 12/24: patient is doing well. Afebrile. Normal white count. Tolerating antibiotics. 12/25: No significant changes. Wound is still oozing. Tolerating antibiotics. 12/26: Continues to be afebrile. Wound is still oozing. Cellulitis improved slightly. Reason For Visit: LEFT LEG CELLULITIS Physical Exam Vital Signs: Temp Pulse Resp BP Pulse Ox 98.2 F 76 19 160/65 H 94 12/26/18 07:55 12/26/18 07:55 12/26/18 07:55 12/26/18 07:55 12/26/18 07:55 Intake & Output 12/25/18 12/26/18 12/27/18 06:59 06:59 06:59 Intake Total 1925 2969 50 Output Total 1900 2590 Balance 25 379 50 Weight 376 lb 5.265 oz 377 lb 3.375 oz Exam: Patient is no acute distress obese Alert oriented to time place person No anxiety or depression Head: atraumatic normocephalic Pupils: are equal reactive Neck: is supple and trachea is central no lymphadenopathy No pharyngeal erythema or exudates Heart: Regular rate and rhythm Lungs: clear no distress Abdomen: nontender nondistended Neurological exam: unremarkable Musculoskeletal: No joint swelling or effusion chronic lower back pain and tenderness No suicidal or homicidal ideation Left leg dressing was taken down and wound was inspected. Erythema slightly improved but still present. Wounds looks the same with slough at the wound bed. Wound is shallow and was not probed. Surrounding skin is macerated and mildly bleeding. There is profuse serous discharge from the wounds. Results Laboratory Results: 12/26/18 05:43 12/25/18 04:38 12/25/18 12/26/18 04:38 05:43 WBC 10.2 RBC 3.65 L Hgb 10.0 L Hct 30.5 L MCV 84 MCH 27.4 MCHC 32.8 RDW 17.6 H Plt Count 413 Sodium 135.8 L Potassium 4.3 Chloride 97 L Carbon Dioxide 29 Anion Gap 10 BUN 12 Creatinine 1.07 Est GFR ( Amer) > 60 Glucose 125 H Calcium 8.6 12/21/18 10:56 Leg - Left Gram Stain - Final 12/21/18 10:56 Leg - Left Wound Culture - Final Enterococcus Faecalis(Group D) Klebsiella(Enterobac)Aerogenes Pseudomonas Aeruginosa 12/20/18 17:25 Blood Blood Culture - Final NO GROWTH IN 5 DAYS 12/20/18 15:24 Blood Blood Culture - Final NO GROWTH IN 5 DAYS Impressions: Tibia/Fibula X-Ray 12/20/18 15:13 IMPRESSION: Diffuse soft tissue swelling. No acute osseous findings. Chest X-Ray 12/20/18 18:31 IMPRESSION: NO ACUTE FINDINGS. Assessment and Plan - Diagnosis (1) Cellulitis Qualifiers: Site of cellulitis: extremity Site of cellulitis of extremity: lower extremity Laterality: left Qualified Code(s): L03.116 - Cellulitis of left lower limb Is this a current diagnosis for this admission?: Yes Plan: 12/21: Continue IV antibiotics. Appreciate surgery recommendations. Will demarcated lesions to monitor progression or improvement. Wound culture also obtained from chronic left leg ulcer. 12/22: Wound culture growing GPC and gram neg rods. Continue vancomycin. Switch Zosyn to Cefepime. 12/23: Wound cultures positive for Enterococcus faecalis and Klebsiella Aerogenes. Switch antibiotics to IV penicillin and ceftriaxone. Consult ID. 12/24: Wound inspected. Appears improving. Continue penicillin and ceftriaxone. Follow-up recommendations from ID. 12/25: I think the wound may need to be debrided. Surgery may need to come back and evaluate the patient again. Discussed with nursing staff. 12/26: Dr. Chaney ordered ultrasound to rule out DVT. Still waiting to hear from ID. Continue current antibiotics. (2) Diabetes mellitus Is this a current diagnosis for this admission?: Yes Plan: Continue current medications. Monitor glucose levels. His A1c is 7.2. (3) HTN (hypertension) Is this a current diagnosis for this admission?: Yes Plan: Continue current medications. Continue to monitor blood pressure. (4) Morbid obesity Is this a current diagnosis for this admission?: Yes Plan: Advised on dietary and lifestyle recommendations and weight loss. (5) Ulcer of leg, chronic, left Qualifiers: Non-pressure ulcer stage: unspecified non-pressure ulcer stage Qualified Code(s): L97.929 - Non-pressure chronic ulcer of unspecified part of left lower leg with unspecified severity Is this a current diagnosis for this admission?: Yes Plan: Continue wound care. Continue with chemical debridement with Santyl.
[2018-12-26 13:43] LABS: ANION GAP 10 (5-19)
[2018-12-26 13:59] LABS: BLOOD UREA NITROGEN 11 mg/dL (7-20); CALCIUM 9.1 mg/dL (8.4-10.2); CARBON DIOXIDE 28 mmol/L (22-30); CHLORIDE 99 mmol/L (98-107); GLUCOSE 177 mg/dL (75-110); POTASSIUM 4.9 mmol/L (3.6-5.0)
[2018-12-26] MEDS: PIOGLITAZONE HCL 30 MG TABLET PO SCH (15:27)
[2018-12-26] MEDS: GLIMEPIRIDE 4 MG TABLET PO SCH (15:27)
[2018-12-26] MEDS: INSULIN GLARGINE,HUM.REC.ANLOG 1,000 UNIT/10 ML VIAL SUBCUT SCH (21:23)
[2018-12-27 06:01] LABS: HEMOGLOBIN 10.1 g/dL (13.5-17.0); MEAN CORPUSCULAR HEMOGLOBIN 27.7 pg (27.0-33.4); MEAN CORPUSCULAR HGB CONC 33.6 g/dL (32.0-36.0); MEAN CORPUSCULAR VOLUME 83 fl (80-97); PLATELET COUNT 447 10^3/uL (150-450); RED BLOOD COUNT 3.63 10^6/uL (4.35-5.55); RED CELL DISTRIBUTION WIDTH 17.7 % (11.5-14.0); WHITE BLOOD COUNT 8.7 10^3/uL (4.0-10.5)
[2018-12-27] MEDS: HYDROCODONE/ACETAMINOPHEN 5-325 MG TABLET PO PRN ×3 (06:35→20:36)
[2018-12-27] MEDS: PANTOPRAZOLE SODIUM 40 MG TABLET.DR PO SCH (06:36)
[2018-12-27] MEDS: ISOSORB DINIT/HYDRALAZINE HCL 20-37.5 MG TABLET PO SCH ×3 (06:36→22:00)
[2018-12-27] MEDS: HEPARIN SOD (PORCINE) 5,000 UNIT/ML 1 ML VIAL SUBCUT SCH ×3 (06:39→21:58)
[2018-12-27] MEDS: INSULIN LISPRO 100 UNIT/ML 3 ML VIAL SUBCUT SCH ×3 (07:31→17:54)
[2018-12-27] MEDS: INSULIN REG, HUMAN 100 UNIT/ML 3 ML VIAL (PYX) SUBCUT SCH ×3 (07:51→17:52)
[2018-12-27] MEDS: DOCUSATE SODIUM 100 MG CAPSULE PO SCH ×2 (10:00→17:40)
[2018-12-27] MEDS: LOSARTAN POTASSIUM 50 MG TABLET PO SCH (10:00)
[2018-12-27] MEDS: GABAPENTIN 300 MG CAPSULE PO SCH ×2 (10:01→21:59)
[2018-12-27] MEDS: METOPROLOL TARTRATE 25 MG TABLET PO SCH ×2 (10:01→22:00)
[2018-12-27] MEDS: FUROSEMIDE 20 MG TABLET PO SCH ×2 (10:01→17:52)
[2018-12-27] MEDS: COLLAGENASE CLOSTRIDIUM HIST. OINT 30 GM TOP SCH ×2 (10:02→22:42)
[2018-12-27] MEDS: MORPHINE SULFATE 10 MG/ML INJ IV PRN ×3 (10:07→22:28)
[2018-12-27] MEDS: ENALAPRIL MALEATE 10 MG TABLET PO SCH ×2 (10:07→21:59)
--- NOTE | 2018-12-27 11:24 | PDOC PROGRESS REPORT ---
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 He was admitted for left lower extremity cellulitis and started on IV antibiotics. He was also evaluated by surgery in the ER. 12/21: This morning, patient still reports has pain and tenderness in the left lower extremity albeit slightly improved from yesterday. Denies any other complaints. Denies chest pain or shortness of breath. No fever chills. 12/22: No acute event overnight. There is noticeable improvement in the swelling and erythematous lesions on the left lower extremity which where previously demarcated yesterday. He does say he still has pain but it is slightly better today. No fever or chills. 12/23: Patient appears comfortable. He is afebrile his white count is normal. Cellulitis is improving. Wound cultures positive for Enterococcus faecalis and Klebsiella Aerogenes. 12/24: patient is doing well. Afebrile. Normal white count. Tolerating antibiotics. 12/25: No significant changes. Wound is still oozing. Tolerating antibiotics. 12/26: Continues to be afebrile. Wound is still oozing. Cellulitis improved slightly. 12/27: No clinical changes. Still oozing serous fluid from the wound on his left leg. Afebrile and white count normal. Reason For Visit: LEFT LEG CELLULITIS Physical Exam Vital Signs: Temp Pulse Resp BP Pulse Ox 98.3 F 74 16 178/78 H 94 12/27/18 07:49 12/27/18 07:49 12/27/18 07:49 12/27/18 07:49 12/27/18 07:49 Intake & Output 12/26/18 12/27/18 12/28/18 06:59 06:59 06:59 Intake Total 2969 1473 Output Total 2590 2100 Balance 379 -627 Weight 377 lb 3.375 oz 374 lb 5.518 oz Exam: Patient is no acute distress obese Alert oriented to time place person No anxiety or depression Head: atraumatic normocephalic Pupils: are equal reactive Neck: is supple and trachea is central no lymphadenopathy No pharyngeal erythema or exudates Heart: Regular rate and rhythm Lungs: clear no distress Abdomen: nontender nondistended Neurological exam: unremarkable Musculoskeletal: No joint swelling or effusion chronic lower back pain and tenderness No suicidal or homicidal ideation Left leg dressing was taken down and wound was inspected. Erythema slightly improved but still present. Wounds looks the same with slough at the wound bed. Wound is shallow and was not probed. Surrounding skin is macerated and mildly bleeding. There is serous discharge from the wounds. Dressing was less saturated than prior. Results Laboratory Results: 12/27/18 05:06 12/26/18 13:00 12/26/18 12/27/18 13:00 05:06 WBC 8.7 RBC 3.63 L Hgb 10.1 L Hct 30.0 L MCV 83 MCH 27.7 MCHC 33.6 RDW 17.7 H Plt Count 447 Sodium 136.9 L Potassium 4.9 Chloride 99 Carbon Dioxide 28 Anion Gap 10 BUN 11 Creatinine 0.98 Est GFR ( Amer) > 60 Glucose 177 H Calcium 9.1 12/21/18 10:56 Leg - Left Gram Stain - Final 12/21/18 10:56 Leg - Left Wound Culture - Final Enterococcus Faecalis(Group D) Klebsiella(Enterobac)Aerogenes Pseudomonas Aeruginosa Impressions: Tibia/Fibula X-Ray 12/20/18 15:13 IMPRESSION: Diffuse soft tissue swelling. No acute osseous findings. Chest X-Ray 12/20/18 18:31 IMPRESSION: NO ACUTE FINDINGS. Assessment and Plan - Diagnosis (1) Cellulitis Qualifiers: Site of cellulitis: extremity Site of cellulitis of extremity: lower extremity Laterality: left Qualified Code(s): L03.116 - Cellulitis of left lower limb Is this a current diagnosis for this admission?: Yes (2) Diabetes mellitus Is this a current diagnosis for this admission?: Yes (3) HTN (hypertension) Is this a current diagnosis for this admission?: Yes (4) Morbid obesity Is this a current diagnosis for this admission?: Yes (5) Ulcer of leg, chronic, left Qualifiers: Non-pressure ulcer stage: unspecified non-pressure ulcer stage Qualified Code(s): L97.929 - Non-pressure chronic ulcer of unspecified part of left lower leg with unspecified severity Is this a current diagnosis for this admission?: Yes - Plan Summary Plan Summary: (1) Cellulitis 12/21: Continue IV antibiotics. Appreciate surgery recommendations. Will demarcated lesions to monitor progression or improvement. Wound culture also obtained from chronic left leg ulcer. 12/22: Wound culture growing GPC and gram neg rods. Continue vancomycin. Switch Zosyn to Cefepime. 12/23: Wound cultures positive for Enterococcus faecalis and Klebsiella Aerogenes. Switch antibiotics to IV penicillin and ceftriaxone. Consult ID. 12/24: Wound inspected. Appears improving. Continue penicillin and ceftriaxone. Follow-up recommendations from ID. 12/25: I think the wound may need to be debrided. Surgery may need to come back and evaluate the patient again. Discussed with nursing staff. 12/26: Dr. Chaney ordered ultrasound to rule out DVT. Still waiting to hear from ID. Continue current antibiotics. 12/26: Apparently ultrasound could not be obtained for some reason. I discussed with Dr. Lee over the phone last night. Pharmacy send him pictures of the wound that was taken by the nurse. He does not think the leg is infected anymore and this is all most likely venous stasis dermatitis. We stopped antibiotics yesterday and currently observing off antibiotics. Patient seems to be doing well so far. (2) Diabetes mellitus Continue current medications. Monitor glucose levels. His A1c is 7.2. (3) HTN (hypertension) Continue current medications. Continue to monitor blood pressure. (4) Morbid obesity Advised on dietary and lifestyle recommendations and weight loss. (5) Ulcer of leg, chronic, left Continue wound care. Continue with chemical debridement with Santyl.
[2018-12-27] MEDS: DULOXETINE HCL 20 MG CAPSULE.DR PO SCH (13:15)
[2018-12-27] MEDS: PIOGLITAZONE HCL 30 MG TABLET PO SCH (17:54)
[2018-12-27] MEDS: GLIMEPIRIDE 4 MG TABLET PO SCH (17:54)
[2018-12-27] MEDS: INSULIN GLARGINE,HUM.REC.ANLOG 1,000 UNIT/10 ML VIAL SUBCUT SCH (21:59)
[2018-12-27] MEDS ORDERED: INSULIN GLARGINE,HUM.REC.ANLOG 1,000 UNIT/10 ML VIAL (PYX) SUBCUT ONE (22:06)
[2018-12-28] MEDS: HYDROCODONE/ACETAMINOPHEN 5-325 MG TABLET PO PRN ×3 (06:10→18:46)
[2018-12-28] MEDS: PANTOPRAZOLE SODIUM 40 MG TABLET.DR PO SCH (06:10)
[2018-12-28] MEDS: ISOSORB DINIT/HYDRALAZINE HCL 20-37.5 MG TABLET PO SCH ×3 (06:10→21:32)
[2018-12-28] MEDS: HEPARIN SOD (PORCINE) 5,000 UNIT/ML 1 ML VIAL SUBCUT SCH ×3 (06:11→21:30)
[2018-12-28] MEDS: INSULIN REG, HUMAN 100 UNIT/ML 3 ML VIAL (PYX) SUBCUT SCH ×3 (07:46→17:38)
[2018-12-28] MEDS: INSULIN LISPRO 100 UNIT/ML 3 ML VIAL SUBCUT SCH ×3 (07:49→17:32)
[2018-12-28] MEDS: FUROSEMIDE 20 MG TABLET PO SCH ×2 (09:46→17:37)
[2018-12-28] MEDS: DULOXETINE HCL 20 MG CAPSULE.DR PO SCH (09:46)
[2018-12-28] MEDS: DOCUSATE SODIUM 100 MG CAPSULE PO SCH ×2 (09:46→17:33)
[2018-12-28] MEDS: METOPROLOL TARTRATE 25 MG TABLET PO SCH ×2 (09:46→21:31)
[2018-12-28] MEDS: LOSARTAN POTASSIUM 50 MG TABLET PO SCH (09:46)
[2018-12-28] MEDS: COLLAGENASE CLOSTRIDIUM HIST. OINT 30 GM TOP SCH ×2 (09:47→21:44)
[2018-12-28] MEDS: ENALAPRIL MALEATE 10 MG TABLET PO SCH ×2 (09:47→21:31)
[2018-12-28] MEDS: GABAPENTIN 300 MG CAPSULE PO SCH ×2 (09:47→21:31)
--- NOTE | 2018-12-28 10:44 | PDOC PROGRESS REPORT ---
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 He was admitted for left lower extremity cellulitis and started on IV antibiotics. He was also evaluated by surgery in the ER. 12/21: This morning, patient still reports has pain and tenderness in the left lower extremity albeit slightly improved from yesterday. Denies any other complaints. Denies chest pain or shortness of breath. No fever chills. 12/22: No acute event overnight. There is noticeable improvement in the swelling and erythematous lesions on the left lower extremity which where previously demarcated yesterday. He does say he still has pain but it is slightly better today. No fever or chills. 12/23: Patient appears comfortable. He is afebrile his white count is normal. Cellulitis is improving. Wound cultures positive for Enterococcus faecalis and Klebsiella Aerogenes. 12/24: patient is doing well. Afebrile. Normal white count. Tolerating antibiotics. 12/25: No significant changes. Wound is still oozing. Tolerating antibiotics. 12/26: Continues to be afebrile. Wound is still oozing. Cellulitis improved slightly. 12/27: No clinical changes. Still oozing serous fluid from the wound on his left leg. Afebrile and white count normal. 12/28: Leg ulcers and inflammation are improving off antibiotics. Is afebrile. Reason For Visit: LEFT LEG CELLULITIS Physical Exam Vital Signs: Temp Pulse Resp BP Pulse Ox 98.8 F 74 16 145/56 H 93 12/28/18 08:02 12/28/18 08:02 12/28/18 08:02 12/28/18 08:02 12/28/18 08:02 Intake & Output 12/27/18 12/28/18 12/29/18 06:59 06:59 06:59 Intake Total 1473 1840 Output Total 2100 1275 Balance -627 565 Weight 374 lb 5.518 oz 367 lb 1.114 oz Exam: Patient is no acute distress obese Alert oriented to time place person No anxiety or depression Head: atraumatic normocephalic Pupils: are equal reactive Neck: is supple and trachea is central no lymphadenopathy No pharyngeal erythema or exudates Heart: Regular rate and rhythm Lungs: clear no distress Abdomen: nontender nondistended Neurological exam: unremarkable Musculoskeletal: No joint swelling or effusion chronic lower back pain and tenderness No suicidal or homicidal ideation Left leg dressing was taken down and wound was inspected. Erythema slightly improved but still present. Wounds looks the same with slough at the wound bed. Wound is shallow and was not probed. Surrounding skin is less macerated and mildly bleeding. There is decreased serous discharge from the wounds. Dressing was less saturated than prior. Results Laboratory Results: 12/27/18 05:06 12/26/18 13:00 Impressions: Tibia/Fibula X-Ray 12/20/18 15:13 IMPRESSION: Diffuse soft tissue swelling. No acute osseous findings. Chest X-Ray 12/20/18 18:31 IMPRESSION: NO ACUTE FINDINGS. Assessment and Plan - Diagnosis (1) Cellulitis Qualifiers: Site of cellulitis: extremity Site of cellulitis of extremity: lower extremity Laterality: left Qualified Code(s): L03.116 - Cellulitis of left lower limb Is this a current diagnosis for this admission?: Yes (2) Diabetes mellitus Is this a current diagnosis for this admission?: Yes (3) HTN (hypertension) Is this a current diagnosis for this admission?: Yes (4) Morbid obesity Is this a current diagnosis for this admission?: Yes (5) Ulcer of leg, chronic, left Qualifiers: Non-pressure ulcer stage: unspecified non-pressure ulcer stage Qualified Code(s): L97.929 - Non-pressure chronic ulcer of unspecified part of left lower leg with unspecified severity Is this a current diagnosis for this admission?: Yes - Plan Summary Plan Summary: (1) Cellulitis 12/21: Continue IV antibiotics. Appreciate surgery recommendations. Will demarcated lesions to monitor progression or improvement. Wound culture also obtained from chronic left leg ulcer. 12/22: Wound culture growing GPC and gram neg rods. Continue vancomycin. Switch Zosyn to Cefepime. 12/23: Wound cultures positive for Enterococcus faecalis and Klebsiella Aerogenes. Switch antibiotics to IV penicillin and ceftriaxone. Consult ID. 12/24: Wound inspected. Appears improving. Continue penicillin and ceftriaxone. Follow-up recommendations from ID. 12/25: I think the wound may need to be debrided. Surgery may need to come back and evaluate the patient again. Discussed with nursing staff. 12/26: Dr. Chaney ordered ultrasound to rule out DVT. Still waiting to hear from ID. Continue current antibiotics. 12/27: Apparently ultrasound could not be obtained for some reason. I discussed with Dr. Lee over the phone last night. Pharmacy send him pictures of the wound that was taken by the nurse. He does not think the leg is infected anymore and this is all most likely venous stasis dermatitis. We stopped antibiotics yesterday and currently observing off antibiotics. Patient seems to be doing well so far. 12/28: Continue to improve even off antibiotics. He is okay for discharge. But he will need home care and wound care. Discussed with nursing staff.is okay for discharge once home care and wound care is arranged. (2) Diabetes mellitus Continue current medications. Monitor glucose levels. His A1c is 7.2. (3) HTN (hypertension) Continue current medications. Continue to monitor blood pressure. (4) Morbid obesity Advised on dietary and lifestyle recommendations and weight loss. (5) Ulcer of leg, chronic, left Continue wound care. Continue with chemical debridement with Santyl.
[2018-12-28] MEDS: MORPHINE SULFATE 10 MG/ML INJ IV PRN ×2 (14:24→21:43)
[2018-12-28] MEDS: GLIMEPIRIDE 4 MG TABLET PO SCH (16:01)
[2018-12-28] MEDS: PIOGLITAZONE HCL 30 MG TABLET PO SCH (16:01)
[2018-12-28] MEDS: INSULIN GLARGINE,HUM.REC.ANLOG 1,000 UNIT/10 ML VIAL SUBCUT SCH (21:31)
[2018-12-29] MEDS: HYDROCODONE/ACETAMINOPHEN 5-325 MG TABLET PO PRN (02:50)
[2018-12-29] MEDS: HEPARIN SOD (PORCINE) 5,000 UNIT/ML 1 ML VIAL SUBCUT SCH ×2 (05:55→13:33)
[2018-12-29] MEDS: PANTOPRAZOLE SODIUM 40 MG TABLET.DR PO SCH (05:55)
[2018-12-29] MEDS: ISOSORB DINIT/HYDRALAZINE HCL 20-37.5 MG TABLET PO SCH ×2 (05:55→13:34)
[2018-12-29] MEDS: INSULIN LISPRO 100 UNIT/ML 3 ML VIAL SUBCUT SCH ×3 (07:45→16:42)
[2018-12-29] MEDS: INSULIN REG, HUMAN 100 UNIT/ML 3 ML VIAL (PYX) SUBCUT SCH ×3 (07:48→16:47)
[2018-12-29] MEDS: DOCUSATE SODIUM 100 MG CAPSULE PO SCH ×2 (09:18→17:11)
[2018-12-29] MEDS: DULOXETINE HCL 20 MG CAPSULE.DR PO SCH (09:18)
[2018-12-29] MEDS: FUROSEMIDE 20 MG TABLET PO SCH ×2 (09:19→17:30)
[2018-12-29] MEDS: LOSARTAN POTASSIUM 50 MG TABLET PO SCH (09:19)
[2018-12-29] MEDS: METOPROLOL TARTRATE 25 MG TABLET PO SCH (09:19)
[2018-12-29] MEDS: GABAPENTIN 300 MG CAPSULE PO SCH (09:19)
[2018-12-29] MEDS: ENALAPRIL MALEATE 10 MG TABLET PO SCH (09:19)
[2018-12-29] MEDS: COLLAGENASE CLOSTRIDIUM HIST. OINT 30 GM TOP SCH (09:21)
--- NOTE | 2018-12-29 12:28 | PDOC PROGRESS REPORT ---
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 He was admitted for left lower extremity cellulitis and started on IV antibiotics. He was also evaluated by surgery in the ER. 12/21: This morning, patient still reports has pain and tenderness in the left lower extremity albeit slightly improved from yesterday. Denies any other complaints. Denies chest pain or shortness of breath. No fever chills. 12/22: No acute event overnight. There is noticeable improvement in the swelling and erythematous lesions on the left lower extremity which where previously demarcated yesterday. He does say he still has pain but it is slightly better today. No fever or chills. 12/23: Patient appears comfortable. He is afebrile his white count is normal. Cellulitis is improving. Wound cultures positive for Enterococcus faecalis and Klebsiella Aerogenes. 12/24: patient is doing well. Afebrile. Normal white count. Tolerating antibiotics. 12/25: No significant changes. Wound is still oozing. Tolerating antibiotics. 12/26: Continues to be afebrile. Wound is still oozing. Cellulitis improved slightly. 12/27: No clinical changes. Still oozing serous fluid from the wound on his left leg. Afebrile and white count normal. 12/28: Leg ulcers and inflammation are improving off antibiotics. Is afebrile. 12/29: No changes overnight. Reason For Visit: LEFT LEG CELLULITIS Physical Exam Vital Signs: Temp Pulse Resp BP Pulse Ox 97.4 F 64 16 148/59 H 91 L 12/29/18 07:32 12/29/18 09:19 12/29/18 07:32 12/29/18 09:19 12/29/18 10:27 Intake & Output 12/28/18 12/29/18 12/30/18 06:59 06:59 06:59 Intake Total 1840 1246 Output Total 1275 1930 Balance 565 -684 Weight 367 lb 1.114 oz 372 lb 5.772 oz Exam: Patient is no acute distress obese Alert oriented to time place person No anxiety or depression Head: atraumatic normocephalic Pupils: are equal reactive Neck: is supple and trachea is central no lymphadenopathy No pharyngeal erythema or exudates Heart: Regular rate and rhythm Lungs: clear no distress Abdomen: nontender nondistended Neurological exam: unremarkable Musculoskeletal: No joint swelling or effusion chronic lower back pain and tenderness No suicidal or homicidal ideation Left leg dressing was taken down and wound was inspected. Erythema slightly improved but still present. Wounds looks the same with slough at the wound bed. Wound is shallow and was not probed. Surrounding skin is less macerated and mildly bleeding. There is decreased serous discharge from the wounds. Dressing was less saturated than prior. Results Laboratory Results: 12/27/18 05:06 12/26/18 13:00 Impressions: Tibia/Fibula X-Ray 12/20/18 15:13 IMPRESSION: Diffuse soft tissue swelling. No acute osseous findings. Chest X-Ray 12/20/18 18:31 IMPRESSION: NO ACUTE FINDINGS. Assessment and Plan - Diagnosis (1) Cellulitis Qualifiers: Site of cellulitis: extremity Site of cellulitis of extremity: lower extremity Laterality: left Qualified Code(s): L03.116 - Cellulitis of left lower limb Is this a current diagnosis for this admission?: Yes (2) Diabetes mellitus Is this a current diagnosis for this admission?: Yes (3) HTN (hypertension) Is this a current diagnosis for this admission?: Yes (4) Morbid obesity Is this a current diagnosis for this admission?: Yes (5) Ulcer of leg, chronic, left Qualifiers: Non-pressure ulcer stage: unspecified non-pressure ulcer stage Qualified Code(s): L97.929 - Non-pressure chronic ulcer of unspecified part of left lower leg with unspecified severity Is this a current diagnosis for this admission?: Yes - Plan Summary Plan Summary: (1) Cellulitis 12/21: Continue IV antibiotics. Appreciate surgery recommendations. Will demarcated lesions to monitor progression or improvement. Wound culture also obtained from chronic left leg ulcer. 12/22: Wound culture growing GPC and gram neg rods. Continue vancomycin. Switch Zosyn to Cefepime. 12/23: Wound cultures positive for Enterococcus faecalis and Klebsiella Aeroge evette. Switch antibiotics to IV penicillin and ceftriaxone. Consult ID. 12/24: Wound inspected. Appears improving. Continue penicillin and ceftriaxone. Follow-up recommendations from ID. 12/25: I think the wound may need to be debrided. Surgery may need to come back and evaluate the patient again. Discussed with nursing staff. 12/26: Dr. Chaney ordered ultrasound to rule out DVT. Still waiting to hear from ID. Continue current antibiotics. 12/27: Apparently ultrasound could not be obtained for some reason. I discussed with Dr. Lee over the phone last night. Pharmacy send him pictures of the wound that was taken by the nurse. He does not think the leg is infected anymore and this is all most likely venous stasis dermatitis. We stopped antibiotics yesterday and currently observing off antibiotics. Patient seems to be doing well so far. 12/28: Continue to improve even off antibiotics. He is okay for discharge. But he will need home care and wound care. Discussed with nursing staff.is okay for discharge once home care and wound care is arranged. 12/29: No clinical changes. Stable (2) Diabetes mellitus Continue current medications. Monitor glucose levels. His A1c is 7.2. (3) HTN (hypertension) Continue current medications. Continue to monitor blood pressure. (4) Morbid obesity Advised on dietary and lifestyle recommendations and weight loss. (5) Ulcer of leg, chronic, left Continue wound care. Continue with chemical debridement with Santyl.
--- NOTE | 2018-12-29 16:16 | PDOC DISCHARGE SUMMARY ---
General - Admit/Disc Date/PCP Admission Date/Primary Care Provider: 12/20/18 19:20 Discharge Date: 12/29/18 - Discharge Diagnosis (1) Cellulitis Is this a current diagnosis for this admission?: Yes (2) Diabetes mellitus Is this a current diagnosis for this admission?: Yes (3) HTN (hypertension) Is this a current diagnosis for this admission?: Yes (4) Morbid obesity Is this a current diagnosis for this admission?: Yes (5) Ulcer of leg, chronic, left Is this a current diagnosis for this admission?: Yes - Additional Information Resuscitation Status: Full Code Discharge Diet: As Tolerated Discharge Activity: Activity As Tolerated Prescriptions: Isosorb Dinit/Hydralazine HCl [Bidil 20-37.5 mg Tablet] 2 tab PO Q8 #180 tablet Docusate Sodium [Colace 100 mg Capsule] 100 mg PO BID #30 capsule Duloxetine HCl [Cymbalta 20 mg Capsule.dr] 20 mg PO DAILY #30 capsule.dr Furosemide [Lasix 20 mg Tablet] 20 mg PO BID #60 tablet Metoprolol Tartrate [Lopressor 25 mg Tablet] 12.5 mg PO Q12 #30 tablet Hydrocodone/Acetaminophen [[place]amo[place] 5-325 mg Tablet] 2 tab PO Q6HP PRN #12 tablet PRN Reason: Collagenase Clostridium Hist. [Santyl Ointment 30 gm] 1 applic TOP Q12 #1 tube Home Medications: Amlodipine Besylate [Norvasc 10 mg Tablet] 10 mg PO DAILY 12/21/18 Candesartan Cilexetil [Atacand 32 mg Tablet] 32 mg PO DAILY 12/21/18 Enalapril Maleate [Vasotec 20 mg Tablet] 20 mg PO Q12 12/21/18 Gabapentin [Neurontin 300 mg Capsule] 300 mg PO Q12 12/21/18 Glimepiride [Amaryl 4 mg Tablet] 4 mg PO ACSUPPER 12/21/18 Insulin Glargine,Hum.rec.anlog [Lantus Insulin 100 Unit/1 ml 10 ml] 70 units SUBCUT QHS 12/21/18 Insulin Regular, Human [Humulin R (Reg) Insulin 100 unit/mL] 5 unit SUBCUT AC 12/21/18 Lansoprazole [Prevacid 30 mg Odt Tablet] 30 mg PO ACBRKFST 12/21/18 Pioglitazone HCl [Actos] 30 mg PO ACSUPPER 12/21/18 Acetaminophen [Tylenol 325 mg Tablet] 650 mg PO Q4HP PRN tablet 12/29/18 Collagenase Clostridium Hist. [Santyl Ointment 30 gm] 1 applic TOP Q12 #1 tube 12/29/18 Docusate Sodium [Colace 100 mg Capsule] 100 mg PO BID #30 capsule 12/29/18 Duloxetine HCl [Cymbalta 20 mg Capsule.] 20 mg PO DAILY #30 capsule. 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 He was admitted for left lower extremity cellulitis and started on IV antibiotics. He was also evaluated by surgery in the ER. Hospital Course Hospital Course: 12/21: This morning, patient still reports has pain and tenderness in the left lower extremity albeit slightly improved from yesterday. Denies any other complaints. Denies chest pain or shortness of breath. No fever chills. 12/22: No acute event overnight. There is noticeable improvement in the swelling and erythematous lesions on the left lower extremity which where previously demarcated yesterday. He does say he still has pain but it is slightly better today. No fever or chills. 12/23: Patient appears comfortable. He is afebrile his white count is normal. Cellulitis is improving. Wound cultures positive for Enterococcus faecalis and Klebsiella Aerogenes. 12/24: patient is doing well. Afebrile. Normal white count. Tolerating antibiotics. 12/25: No significant changes. Wound is still oozing. Tolerating antibiotics. 12/26: Continues to be afebrile. Wound is still oozing. Cellulitis improved slightly. 12/27: No clinical changes. Still oozing serous fluid from the wound on his left leg. Afebrile and white count normal. 12/28: Leg ulcers and inflammation are improving off antibiotics. Is afebrile. 12/29: No changes overnight. (1) Cellulitis 12/21: Continue IV antibiotics. Appreciate surgery recommendations. Will demarcated lesions to monitor progression or improvement. Wound culture also obtained from chronic left leg ulcer. 12/22: Wound culture growing GPC and gram neg rods. Continue vancomycin. Switch Zosyn to Cefepime. 12/23: Wound cultures positive for Enterococcus faecalis and Klebsiella Aerogenes. Switch antibiotics to IV penicillin and ceftriaxone. Consult ID. 12/24: Wound inspected. Appears improving. Continue penicillin and ceftriaxone. Follow-up recommendations from ID. 12/25: I think the wound may need to be debrided. Surgery may need to come back and evaluate the patient again. Discussed with nursing staff. 12/26: Dr. Chaney ordered ultrasound to rule out DVT. Still waiting to hear from ID. Continue current antibiotics. 12/27: Apparently ultrasound could not be obtained for some reason. I discussed with Dr. Lee over the phone last night. Pharmacy send him pictures of the wound that was taken by the nurse. He does not think the leg is infected anymore and this is all most likely venous stasis dermatitis. We stopped antibiotics yesterday and currently observing off antibiotics. Patient seems to be doing well so far. 12/28: Continue to improve even off antibiotics. He is okay for discharge. But he will need home care and wound care. Discussed with nursing staff.is okay for discharge once home care and wound care is arranged. 12/29: No clinical changes. Stable (2) Diabetes mellitus Continue current medications. Monitor glucose levels. His A1c is 7.2. (3) HTN (hypertension) Continue current medications. Continue to monitor blood pressure. (4) Morbid obesity Advised on dietary and lifestyle recommendations and weight loss. (5) Ulcer of leg, chronic, left Continue wound care. Continue with chemical debridement with Santyl. patient will establish wound care in his hometown in [place]. he wants to be discharged Physical Exam Vital Signs: Temp Pulse Resp BP Pulse Ox 98.4 F 66 16 151/67 H 95 12/29/18 11:13 12/29/18 11:13 12/29/18 11:13 12/29/18 11:13 12/29/18 11:13 Intake & Output 12/28/18 12/29/18 12/30/18 06:59 06:59 06:59 Intake Total 1840 1246 472 Output Total 1275 1930 1200 Balance 928 -997 -922 Weight 367 lb 1.114 oz 372 lb 5.772 oz Exam: Patient is no acute distress obese Alert oriented to time place person No anxiety or depression Head: atraumatic normocephalic Pupils: are equal reactive Neck: is supple and trachea is central no lymphadenopathy No pharyngeal erythema or exudates Heart: Regular rate and rhythm Lungs: clear no distress Abdomen: nontender nondistended Neurological exam: unremarkable Musculoskeletal: No joint swelling or effusion chronic lower back pain and t enderness No suicidal or homicidal ideation Left leg dressing was taken down and wound was inspected. Erythema slightly improved but still present. Wounds looks the same with slough at the wound bed. Wound is shallow and was not probed. Surrounding skin is less macerated and mildly bleeding. There is decreased serous discharge from the wounds. Dressing was less saturated than prior. Results Laboratory Results: 12/27/18 05:06 12/26/18 13:00 Impressions: Tibia/Fibula X-Ray 12/20/18 15:13 IMPRESSION: Diffuse soft tissue swelling. No acute osseous findings. Chest X-Ray 12/20/18 18:31 IMPRESSION: NO ACUTE FINDINGS. Qualifiers PATIENT BEING DISCHARGED WITH ANY OF THE FOLLOWING DIAGNOSIS: No Acute Heart Failure - Is this a Heart Failure Patient?: No Plan Time Spent: Greater than 30 Minutes - 37 min
[2018-12-29 16:19] VITALS: BP 149/62
[2018-12-29] MEDS: PIOGLITAZONE HCL 30 MG TABLET PO SCH (16:47)
[2018-12-29] MEDS: GLIMEPIRIDE 4 MG TABLET PO SCH (16:47)
== END 2018-12-29 18:00 | disposition home or self-care (01) | DRG 603 ==
LOC: ER 14:02 → EH 19:20 → 4S 22:47
PROVIDERS: ADMIT Internal Medicine; ATTEND Internal Medicine
DX: L03.116 Cellulitis of left lower limb (principal); L97.829 Non-pressure chronic ulcer of other part of left lower leg with unspecified severity; Z68.42 Body mass index [BMI] 45.0-49.9, adult; E66.01 Morbid (severe) obesity due to excess calories; I87.2 Venous insufficiency (chronic) (peripheral); E11.9 Type 2 diabetes mellitus without complications; I83.028 Varicose veins of left lower extremity with ulcer other part of lower leg; B95.2 Enterococcus as the cause of diseases classified elsewhere; B96.1 Klebsiella pneumoniae [K. pneumoniae] as the cause of diseases classified elsewhere; E78.5 Hyperlipidemia, unspecified; I10 Essential (primary) hypertension; I89.0 Lymphedema, not elsewhere classified; G47.33 Obstructive sleep apnea (adult) (pediatric); R20.8 Other disturbances of skin sensation; Z79.4 Long term (current) use of insulin; Z83.3 Family history of diabetes mellitus; Z82.49 Family history of ischemic heart disease and other diseases of the circulatory system
CPT/HCPCS: 36415; 71046; 80048; 80053; 80202; 81001; 82565; 82962; 83036; 83605; 85025; 85027; 87040; 87070; 87075; 87077; 87186; 87205; 93005; 93010; 94660; 94799; 96361; 96374; 99285; J0692; J0696; J1644; J1815; J1885; J2270; J2540; J2543; J3370; J3490; J7030; J7050; J7060

== ENCOUNTER 2019-04-24 11:11 | Emergency (ER) | payer OTHER ==
--- NOTE | 2019-04-24 11:34 | ER Document Report ---
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 Patient keeps reporting he could not get motivated. [employer] manager of the OR reports patient was found in the locker room reporting that he just did not feel good. Reports he was supposed to clock in for work at 9:00 but at 10 he was still in the locker room. She brought him to the emergency department. Patient reports on Saturday he fell in the shower and fractured some ribs. Patient reports he is having trouble keeping his thoughts together. Appears to be incontinent of urine but reports he spilled water on himself. Patient denies vomiting or diarrhea. Patient O2 sat is 94% he reports as normal for him. I have greeted and performed a rapid initial assessment of this patient. A comprehensive ED assessment and evaluation of the patient, analysis of test results and completion of the medical decision making process will be conducted by additional ED providers. TRAVEL OUTSIDE OF THE [place] IN LAST 30 DAYS: No - Related Data Allergies/Adverse Reactions: No Known Allergies Allergy (Verified 04/24/19 11:18) Past Medical History - Past Medical History Cardiac Medical History: Reports: Hx Hypercholesterolemia, Hx Hypertension Endocrine Medical History: Reports: Hx Diabetes Mellitus Type 2 Musculoskeltal Medical History: Reports Hx Musculoskeletal Deformity, Reports Hx Musculoskeletal Trauma Past Surgical History: Reports: Hx Abdominal Surgery - hernia repair x 2, Hx Inguinal Hernia, Hx Oral Surgery, Hx Orthopedic Surgery - karla knee, Hx Tonsillectomy Physical Exam - Vital signs Vitals: Temp Pulse Resp BP Pulse Ox 98.5 F 105 H 28 H 178/80 H 93 04/24/19 11:18 04/24/19 11:18 04/24/19 11:18 04/24/19 11:18 04/24/19 11:18 Course - Vital Signs Vital signs: Temp Pulse Resp BP Pulse Ox 98.5 F 105 H 28 H 178/80 H 93 04/24/19 11:18 04/24/19 11:18 04/24/19 11:18 04/24/19 11:18 04/24/19 11:18 Doctor's Discharge - Discharge Referrals: KAREEN LOUISE NP, PA[employer]ROLL LEAD [Primary Care Provider] - Follow up as needed
[2019-04-24 12:01] LABS: ABSOLUTE BASOPHILS # (AUTO) 0.1 10^3/uL (0.0-0.2); ABSOLUTE EOSINOPHILS # (AUTO) 0.2 10^3/uL (0.0-0.6); ABSOLUTE LYMPHOCYTES (AUTO) 0.9 10^3/uL (0.5-4.7); ABSOLUTE MONOCYTES (AUTO) 0.9 10^3/uL (0.1-1.4); ABSOLUTE NEUT (AUTO) 14.5 10^3/uL (1.7-8.2); BASOPHILS % (AUTO) 0.6 % (0-2); EOSINOPHILS % (AUTO) 1.1 % (0-6); HEMATOCRIT 36.8 % (37.9-51.0); HEMOGLOBIN 12.2 g/dL (13.5-17.0); LYMPHOCYTES % (AUTO) 5.3 % (13-45); MEAN CORPUSCULAR HGB CONC 33.2 g/dL (32.0-36.0); MEAN CORPUSCULAR VOLUME 84 fl (80-97); MONOCYTES % (AUTO) 5.2 % (3-13); PLATELET COUNT 266 10^3/uL (150-450); RED BLOOD COUNT 4.37 10^6/uL (4.35-5.55); SEGMENTED NEUTROPHILS % (AUTO) 87.8 % (42-78); TOTAL CELLS COUNTED % (AUTO) 100 %; WHITE BLOOD COUNT 16.6 10^3/uL (4.0-10.5)
--- NOTE | 2019-04-24 12:08 | RADIOLOGY REPORT (SQ) ---
EXAM DESCRIPTION: CHEST 2 VIEWS COMPLETED DATE/TIME: 04/24/2019 11:57 am REASON FOR STUDY: fx ribs COMPARISON: PA and lateral views of the chest from 12/20/2018. EXAM PARAMETERS: NUMBER OF VIEWS: two views TECHNIQUE: PA and lateral views of the chest were obtained. RADIATION DOSE: NA LIMITATIONS: none FINDINGS: LUNGS AND PLEURA: The increased AP diameter of the thorax and the flattening of the hemidi aphragms on the lateral view are suggestive of COPD. There is no acute consolidation, pleural effusi on or pneumothorax. MEDIASTINUM AND HILAR STRUCTURES: No mediastinal or hilar contour abnormality. HEART AND VASCULAR STRUCTURES: The cardiac silhouette and pulmonary vasculature are within normal yañez its. BONES: Findings of DISH. There is no acute fracture. HARDWARE: None in the chest. OTHER: No other finding. IMPRESSION: Suspected COPD without a superimposed acute cardiopulmonary process. TECHNICAL DOCUMENTATION: JOB ID: [id number] [employer]- All Rights Reserved Reading location - IP/workstation name: [email or web address]
[2019-04-24 12:12] LABS: APPEARANCE,URINE CLEAR; BILIRUBIN,URINE NEGATIVE (NEGATIVE); COLOR,URINE YELLOW; GLUCOSE, URINE NEGATIVE (NEGATIVE); KETONES,URINE NEGATIVE (NEGATIVE); LEUKOCYTE ESTERASE,URINE NEGATIVE (NEGATIVE); NITRITE,URINE NEGATIVE (NEGATIVE); PROTEIN,URINE NEGATIVE (NEGATIVE); URINE SPECIFIC GRAVITY 1.016
[2019-04-24 12:25] LABS: ALBUMIN 3.8 g/dL (3.5-5.0); ALKALINE PHOSPHATASE 176 U/L (38-126); ANION GAP 9 (5-19); ASPARTATE AMINO TRANSFERASE 26 U/L (17-59); BILIRUBIN,DIRECT 0.3 mg/dL (0.0-0.4); BILIRUBIN,TOTAL 0.8 mg/dL (0.2-1.3); BLOOD UREA NITROGEN 19 mg/dL (7-20); CALCIUM 9.4 mg/dL (8.4-10.2); CARBON DIOXIDE 31 mmol/L (22-30); CHLORIDE 95 mmol/L (98-107); GLUCOSE 152 mg/dL (75-110); POTASSIUM 4.8 mmol/L (3.6-5.0); TOTAL PROTEIN 7.5 g/dL (6.3-8.2)
[2019-04-24 12:33] LABS: URINE AMPHETAMINES SCREEN NEGATIVE; URINE BARBITURATES SCREEN NEGATIVE; URINE BENZODIAZEPINES SCREEN NEGATIVE; URINE COCAINE SCREEN NEGATIVE; URINE MARIJUANA (THC) SCREEN NEGATIVE; URINE METHADONE SCREEN NEGATIVE; URINE PHENCYCLIDINE SCREEN NEGATIVE
--- NOTE | 2019-04-24 12:44 | RADIOLOGY REPORT (SQ) ---
EXAM DESCRIPTION: CT HEAD WITHOUT COMPLETED DATE/TIME: 04/24/2019 12:10 pm REASON FOR STUDY: ams COMPARISON: None. TECHNIQUE: Axial images acquired through the brain without intravenous contrast. Images reviewed wi th bone, brain and subdural windows. Additional sagittal and coronal reconstructions were generated. Images stored on PACS. All CT scanners at this facility use dose modulation, iterative reconstruction, and/or weight based d osing when appropriate to reduce radiation dose to as low as reasonably achievable (ALARA). [facility]: Dose Right [facility]: CareDose [facility]: Dose Right [facility]: Teradose 4D [facility]: DataStax RADIATION DOSE: CT Rad equipment meets quality standard of care and radiation dose reduction techniq ues were employed. CTDIvol: 53.2 mGy. DLP: 1044 mGy-cm. LIMITATIONS: None. FINDINGS: There is no acute intracranial hemorrhage, vascular territorial infarct, extra-axial fluid collection, mass effect or midline shift. There is no effacement of the cerebral sulci or basal sub arachnoid cisterns. The kerr-white matter differentiation is preserved. The caliber of the ventricl es is concordant with the degree of sulcation. There is forward protrusion of the right globe with respect to the orbit. The right globe is also ap hakic. The orbits are intact. The paranasal sinuses and the mastoid air cells are clear. The diploic space of the left frontal lobe is widened and there are prominent tubular structures with in it that could represent dilated diploic veins. There is no fracture or osseous erosion. IMPRESSION: 1. No acute intracranial abnormality. 2. Widening of the diploic space of the left frontal lobe with prominent tubular structures within it that could represent dilated diploic veins. EVIDENCE OF ACUTE STROKE: NO. COMMENT: Quality ID # [id number]: Final reports with documentation of one or more dose reduction techniques (e.g., Automated exposure control, adjustment of the mA and/or kV according to patient size, use of iterative reconstruction technique) TECHNICAL DOCUMENTATION: JOB ID: [id number] [employer]- All Rights Reserved Reading location - IP/workstation name: [email or web address]
[2019-04-24 13:38] LABS: ARTERIAL BLOOD BASE EXCESS 3.8 mmol/L; ARTERIAL BLOOD HCO3 27.1 mmol/L (20-24); ARTERIAL BLOOD O2 SATURATION 93.8 % (94-98); ARTERIAL BLOOD PCO2 36.5 mmHg (35-45); ARTERIAL BLOOD PH 7.49 (7.35-7.45); ARTERIAL BLOOD PO2 63.1 mmHg (80-100); ARTERIAL BLOOD TOTAL CO2 28.2 mmol/L (23-27)
[2019-04-24 13:40] LABS: ARTERIAL BLOOD FIO2 ROOM AIR
--- NOTE | 2019-04-24 15:30 | ER Document Report ---
ED General - General Chief Complaint: Medical Complaint Stated Complaint: FALL/LEFT SIDE PAIN Time Seen by Provider: 04/24/19 11:21 Primary Care Provider: KAREEN LOUISE KIER BOILER, KIER BOILER [NURSE PRACTITIONER] - Follow up as needed Mode of Arrival: Wheelchair Notes: 63-year-old man presents to the emergency department history of a fall in the shower on Saturday apparently fractured ribs. He has been on oxycodone since that time. States he took his last dose at approximately 8 PM last night. Today he arrived to work late and seemed confused and disheveled. Because of that presentation he was sent to the emergency department for further evaluation and treatment. After a period of time in the emergency department the patient states that he feels much better. He is diabetic and has lymphedema in the lower extremities. TRAVEL OUTSIDE OF THE [place] IN LAST 30 DAYS: No - Related Data Allergies/Adverse Reactions: No Known Allergies Allergy (Verified 04/24/19 11:18) Past Medical History - General Information source: Patient - Social History Smoking Status: Never Smoker Family History: DM, Other - Peripheral vascular disease Patient has suicidal ideation: No Patient has homicidal ideation: No - Past Medical History Cardiac Medical History: Reports: Hx Hypercholesterolemia, Hx Hypertension Endocrine Medical History: Reports: Hx Diabetes Mellitus Type 2 Musculoskeletal Medical History: Reports Hx Musculoskeletal Deformity, Reports Hx Musculoskeletal Trauma Past Surgical History: Reports: Hx Abdominal Surgery - hernia repair x 2, Hx Inguinal Hernia, Hx Oral Surgery, Hx Orthopedic Surgery - karla knee, Hx Tonsillectomy Review of Systems - Review of Systems Notes: Constitutional: Negative for fever. HENT: Negative for sore throat. Eyes: Negative for visual changes. Cardiovascular: Negative for chest pain. Respiratory: Negative for shortness of breath. Gastrointestinal: Negative for abdominal pain, vomiting or diarrhea. Genitourinary: Negative for dysuria. Musculoskeletal: + Lower extremity swelling, negative for back pain. Skin: Negative for rash. Neurological: + Episode of confusion, negative for headaches, weakness or numbness. 10 point ROS negative except as marked above and in HPI. Physical Exam - Vital signs Vitals: Temp Pulse Resp BP Pulse Ox 98.5 F 105 H 28 H 178/80 H 93 04/24/19 11:18 04/24/19 11:18 04/24/19 11:18 04/24/19 11:18 04/24/19 11:18 - Notes Notes: PHYSICAL EXAMINATION: Physical Exam: General: Overweight 63-year-old man in no acute distress HEENT: NC/AT, pupils equal round and reactive to light, MM moist,nares clear, oropharynx clear Neck: supple, no adenopathy, no masses. Lungs: clear, no wheezing, no rales no rhonchi CVS: Regular rate and rhythm no murmur gallop or rub Abdomen: Soft active nontender, no masses, no hepatosplenomegaly Ext: Lichenification bilateral lower extremities with marked edema. Neuro: Alert and responsive, moving all 4 extremities on command, cranial nerves intact. Skin: Intact no open lesions, no rash PSYCH: Normal mood, normal affect. Course - Re-evaluation Re-evalutation: 04/24/19 15:30 Differential diagnosis Adverse reaction to opiate, infection, electrolyte imbalance, ischemic/vascular 04/24/19 16:22 Patient states that he is doing better and is ready to go. A review of his lab data and CT scan results are unremarkable acute findings. I have encouraged him to begin management of his pain with ibuprofen and Tylenol and to give himself a 72-hour period off of opiates before he returns to the workplace. He is also encouraged to follow-up with his primary care doctor. The patient has acknowledged an understanding of this plan and is in agreement. - Vital Signs Vital signs: Temp Pulse Resp BP Pulse Ox 100.0 F 105 H 21 H 142/72 H 94 04/24/19 15:01 04/24/19 11:18 04/24/19 15:01 04/24/19 15:01 04/24/19 15:01 - Laboratory Result Diagrams: 04/24/19 11:40 04/24/19 11:40 Laboratory results interpreted by me: 04/24/19 04/24/19 04/24/19 11:40 11:40 11:40 WBC 16.6 H Hgb 12.2 L Hct 36.8 L RDW 17.0 H Lymph % (Auto) 5.3 L Absolute Neuts (auto) 14.5 H Seg Neutrophils % 87.8 H ABG pH ABG pO2 ABG HCO3 ABG Total CO2 ABG O2 Saturation Sodium 135.1 L Chloride 95 L Carbon Dioxide 31 H Glucose 152 H Alkaline Phosphatase 176 H Urine Urobilinogen 2.0 H 04/24/19 13:20 WBC Hgb Hct RDW Lymph % (Auto) Absolute Neuts (auto) Seg Neutrophils % ABG pH 7.49 H ABG pO2 63.1 L ABG HCO3 27.1 H ABG Total CO2 28.2 H ABG O2 Saturation 93.8 L Sodium Chloride Carbon Dioxide Glucose Alkaline Phosphatase Urine Urobilinogen 04/24/19 16:29 I have reviewed laboratory data and used this information for the treatment decisions regarding the patient. - Diagnostic Test Radiology reviewed: Image reviewed, Reports reviewed - Chest x-ray, 2 view, COPD no acute infiltrate or effusion CT of the head, noncontrast: No acute intracranial abnormalities noted. Discharge - Discharge Clinical Impression: Adverse reaction to narcotic drug Qualifiers: Encounter type: initial encounter Qualified Code(s): T40.605A - Adverse effect of unspecified narcotics, initial encounter Condition: Good Disposition: HOME, SELF-CARE Additional Instructions: You present with a presentation which suggests adverse reaction to opioid medications. I suggest that you manage your pain with Tylenol and ibuprofen, use minimum doses of your Percocet. Discussed with your primary physician returning to work 72 hours after you have taken your last dose of opiate. If you have further problems, difficulties please return to the emergency department for further evaluation and treatment. Referrals: KAREEN LOUISE KIER BOILER, KIER BOILER [NURSE PRACTITIONER] - Follow up as needed
[2019-04-24 17:45] VITALS: BP 161/67
== END 2019-04-24 17:07 | disposition home or self-care (01) ==
LOC: ER 11:11
DX: T40.605A Adverse effect of unspecified narcotics, initial encounter (principal); S22.49XD Multiple fractures of ribs, unspecified side, subsequent encounter for fracture with routine healing; R41.0 Disorientation, unspecified; M79.89 Other specified soft tissue disorders; W18.2XXD Fall in (into) shower or empty bathtub, subsequent encounter; I89.0 Lymphedema, not elsewhere classified; I10 Essential (primary) hypertension; E11.9 Type 2 diabetes mellitus without complications
CPT/HCPCS: 36415; 70450; 71046; 80053; 80307; 81001; 82803; 82962; 85025; 99285